=== PATIENT | male | born 1955 | race Caucasian/White ===

== ENCOUNTER → 2016-12-16 | Outpatient (CLI) | payer OTHER ==
[~2016-12-16] VITALS: Ht 162.6 cm; Wt 59.0 kg
[~2016-12-16] MED LIST: BECL10PO INH; LISI-556 PO; RT-ALBUINH IH
== END ==
LOC: PREOP 05:43
PROVIDERS: ATTEND Internal Medicine Critical Care Medicine
DX: Z01.818 Encounter for other preprocedural examination (principal); R91.8 Other nonspecific abnormal finding of lung field

== ENCOUNTER 2016-12-18 06:51 | Day surgery (SDC) | payer OTHER ==
[~2016-12-18] VITALS: Ht 162.6 cm; Wt 59.0 kg
[2016-12-18] MEDS ORDERED: SEVOFLURANE (ULTANE) 15 ML INHAL SOLN ONE (06:57)
[2016-12-18] MEDS ORDERED: proPOfol 200 MG/20 ML (DIPRIVAN) VIAL IV ONE (06:57)
[2016-12-18] MEDS ORDERED: LIDOCAINE JELLY 2% (XYLOCAINE) 5 ML TUBE ONE (06:57)
[2016-12-18] MEDS ORDERED: fentaNYL INJECTION 100 MCG/2 ML AMP ONE (06:57)
[2016-12-18] MEDS ORDERED: MIDAZOLAM 2 MG/2 ML (VERSED) VIAL ONE (06:57)
[2016-12-18] MEDS ORDERED: ROCURONIUM 50 MG/5 ML (ZEMURON) VIAL IV ONE (06:58)
[2016-12-18] MEDS ORDERED: LIDOCAINE PF 2% 10 ML (XYLOCAINE) AMP ONE (06:58)
[2016-12-18] MEDS ORDERED: ONDANSETRON 4 MG/2 ML (SDV) Z0FRAN ONE (06:58)
[2016-12-18 07:10] VITALS: BP 162/94
[2016-12-18] MEDS ORDERED: fentaNYL INJECTION 100 MCG/2 ML AMP IVP PRN (07:15)
[2016-12-18] MEDS ORDERED: NS IV 1000 ML 1,000 ML IV PRN (07:15)
[2016-12-18] MEDS ORDERED: FLUMAZENIL (ROMAZICON) 0.1 MG/ML 5 ML VIAL INJ PRN (07:15)
[2016-12-18] MEDS ORDERED: NALOXONE 0.4 MG/ML 1 ML (NARCAN) VIAL IVP PRN (07:15)
[2016-12-18] MEDS ORDERED: MIDAZOLAM 2 MG/2 ML (VERSED) VIAL IVP PRN (07:15)
[2016-12-18] MEDS: FAMOTIDINE 20MG/2ML IV (PEPCID) IVP ONE ×2 (07:30→07:45)
[2016-12-18] MEDS ORDERED: FAMOTIDINE 20MG/2ML IV (PEPCID) ONE (07:38)
--- NOTE | 2016-12-18 07:46 | Progress Note-Pre Operative ---
Pre-Operative Progress Note H&P Reviewed The H&P was reviewed, patient examined and no changes noted. Date H&P Reviewed: Dec 18, 2016 Time H&P Reviewed: 07:46 Pre-Operative Diagnosis: lung mass ESCOBAR BELL DO Dec 18, 2016 07:46
[2016-12-18] MEDS: NS IV 500 ML 500 ML IV PRN ×2 (08:55→10:37)
[2016-12-18] MEDS ORDERED: NS IV 500 ML 500 ML ONE (08:55)
--- NOTE | 2016-12-18 09:48 | Diagnostic Imaging Report ---
INDICATION: Post bronc. Right lung mass. FINDINGS: Very large right upper lobe medial lung mass measures cephalocaudal dimensions of about 11 cm. There is some postobstructive atelectasis. There is no pneumothorax. The left lung is clear. IMPRESSION: Known large right lung mass with mild postobstructive disease. No pneumothorax apparent post bronchoscopy. Dictated by: Dictated on workstation # [id number]
[2016-12-18] MEDS ORDERED: RT-ALBUTEROL SULF 2.5 MG/3 ML PRE-MIX VIAL INH SCH (09:54)
[2016-12-18] MEDS ORDERED: RT-ALBUTEROL/IPRATROPIUM 3 ML (DUONEB) VIAL INH ONE (09:54)
[2016-12-18] MEDS ORDERED: methylPREDNISolone 125 MG (Solu-MEDROL) VIAL ONE (09:59)
[2016-12-18] MEDS ORDERED: RT-ALBUTEROL SULF 2.5 MG/3 ML PRE-MIX VIAL ONE (09:59)
[2016-12-18] MEDS ORDERED: RT-ALBUTEROL/IPRATROPIUM 3 ML (DUONEB) VIAL ONE (10:07)
[2016-12-18] MEDS ORDERED: methylPREDNISolone 125 MG (Solu-MEDROL) VIAL IVP ONE (10:15)
[2016-12-18 10:50] VITALS: BP 161/85
[2016-12-18 11:20] VITALS: BP 165/93
[2016-12-18 11:30] VITALS: BP 165/93
--- NOTE | 2016-12-18 18:41 | Diagnostic Imaging Report ---
INDICATION: Bronchoscopy. EXAMINATION: Fluoroscopy. Fluoroscopic assistance was provided for Dr. Jose Londono during his bronchoscopy procedure. 53.3 seconds of fluoroscopy time was utilized. FINDINGS: Single spot film of the right thorax was received. There is a bronchoscopy device overlying the right hilum. IMPRESSION: Fluoroscopic assistance was provided for Dr. Londono during his bronchoscopy procedure. Dictated by: Dictated on workstation # [id number]
--- NOTE | 2017-01-15 13:26 | Pulmonary Procedures ---
Pulmonary Procedures Date of Procedure Date of Service: Dec 18, 2016 Bronch Bronchoscopy with EBUS with bx of RUL station 7 lymph nodes Preop DX: mediastinal lymphadenopathy PostOP DX: same Complications: None Pt was sedated per anesthesia. Bronchoscopy was advanced through the ED tube and an anatomical undertaken down to the segmental bronchi bilaterally. No endobronchial lesions noted. EBUS was then advanced through ET tube and the mediastinum was US. Station [7] lymph nodes were sampled via needle bx under US guidance. Pt tolerated procedure well. No complications noted. ESCOBAR BELL DO Jan 15, 2017 13:26
== END 2016-12-18 11:30 | disposition home or self-care (01) ==
LOC: ENDO 06:51
PROVIDERS: ATTEND Internal Medicine Critical Care Medicine
DX: C34.11 Malignant neoplasm of upper lobe, right bronchus or lung (principal); C77.1 Secondary and unspecified malignant neoplasm of intrathoracic lymph nodes
CPT/HCPCS: 71010; 81235; 87070; 87101; 87116; 87205; 88112; 88305; 88312; 88341; 88342; 88344; 88368; 88369; 88381; 94640

== ENCOUNTER → 2016-12-31 | Outpatient (CLI) | payer OTHER ==
--- OUTSIDE RECORDS SUMMARY | 2016-12-31 09:52 | XMS REPORT | Continuity of Care Document ---
Author Author [facility] Organization [facility] Address Unknown Phone Unavailable Care Team Providers Care Section Cutter Name Role Phone NO, LOCAL PHYSICIAN PCP Unavailable Insurance Providers Payer Name Policy Number Subscriber Name Relationship [facility] [id number] Trisha Membreno. 19 Self / Same As Patient Advance Directives Directive Response Recorded Date/Time Advance Directives No 12/18/16 7:15am Health Care Power of Library Cataloging Technician No 12/18/16 7:15am Resuscitation Status Full Code 12/18/16 7:15am Problems No problem information available. Medications Current Home Medications Medication Dose Units Route Directions Days/Qty Instructions Start Date Lisinopril 5 Mg 5 Mg Oral Daily 12/16/16 Beclomethasone Dipropionate 10 Gm 1 Puff Inhalation Twice A Day 03/29 Albuterol Sulfate 1 Puff 2 Puff Inhalation Every 4HRS 1 PUFF=90 MCG Social History Social History Problem Response Recorded Date/Time Alcohol Use Denies Use 12/18/2016 7:15am Recreational Drug Use No 12/18/2016 7:15am Recent Foreign Travel No 12/18/2016 7:00am Recent Infectious Disease Exposure No 12/18/2016 7:00am Sexually Transmitted Disease No 12/18/2016 7:15am HIV/AIDS No 12/18/2016 7:15am Smoking Status Former Smoker 12/18/2016 7:15am Recent Hopitalizations No 12/18/2016 7:15am Sexually Transmitted Disease No 12/18/2016 7:15am Query Response Start Date Stop Date Smoking Status Former Smoker Hospital Discharge Instructions No hospital discharge instructions. Plan of Care Discharge Date 12/18/16 11:30am Instructions/Education Provided BRONCHOSPASM-ADULT Bronchoscopy, Diagnostic Prescriptions See Medication Section Functional Status No functional status results. Allergies, Adverse Reactions, Alerts Allergen Type Severity Reaction Status Last Updated Penicillins ([id number]) Allergy Intermediate ITCHING/SWELLING Active 03/29 Aspirin Allergy Intermediate ITCHING/SWELLING Active 12/16/16 Immunizations No immunization records. Vital Signs Acute Vital Signs Vital Response Date/Time Temperature (Fahrenheit) 98.3 degrees F (97.6 - 99.5) 12/18/2016 11:30am Temperature (Calculated Celsius) 36.84744 degrees C (36.4 - 37.5) 12/18/2016 11:30am Temperature Source Tympanic 12/18/2016 11:30am Pulse Rate (adult) 116 bpm (60 - 90) 12/18/2016 11:30am Respiratory Rate 20 bpm (12 - 24) 12/18/2016 11:30am O2 Sat by Pulse Oximetry 93 % (88 - 100) 12/18/2016 11:30am Blood Pressure 165/93 mm Hg 12/18/2016 11:30am Blood Pressure Mean 116 mm Hg 12/18/2016 7:10am Pain Numeric Pain Scale 0-No Pain 12/18/2016 11:30am Pain Intensity 0 12/18/2016 11:20am Height (Feet) 5 feet 12/18/2016 7:00am Height (Inches) 4.00 inches 12/18/2016 7:00am Height (Calculated Centimeters) 162.069379 cm 12/18/2016 7:00am Weight (Pounds) 130 pounds 12/18/2016 7:00am Weight (Ounces) 0.0 oz 12/18/2016 7:00am Weight (Calculated Grams) 35417.01 gm 12/18/2016 7:00am Weight (Calculated Kilograms) 58.273442 kilograms 12/18/2016 7:00am Calculated BMI 22.3 12/18/2016 7:00am Results Laboratory Results Test Name Result Units Flags Reference Collection Date/Time Result Date/ Time Comments White Blood Count 23.4 10^3/uL H 4.3-11.0 12/11/2016 8:54am 12/11/2016 9: 03am Red Blood Count 3.88 10^6/uL L 4.35-5.85 12/11/2016 8:54am 12/11/2016 9: 03am Hemoglobin 11.8 G/DL L 13.3-17.7 12/11/2016 8:54am 12/11/2016 9:03am Hematocrit 34 % L 40-54 12/11/2016 8:54am 12/11/2016 9:03am Mean Corpuscular Volume 87 FL 80-99 12/11/2016 8:54am 12/11/2016 9: 03am Mean Corpuscular Hemoglobin 30 PG 25-34 12/11/2016 8:54am 12/11/2016 9: 03am Mean Corpuscular Hemoglobin Concent 35 G/DL 32-36 12/11/2016 8:54am 10/2016 9:03am Red Cell Distribution Width 14.7 % H 10.0-14.5 12/11/2016 8:54am 2016 9:03am Platelet Count 866 10^3/uL H 130-400 12/11/2016 8:54am 12/11/2016 9:03am Mean Platelet Volume 8.0 FL 7.4-10.4 12/11/2016 8:54am 12/11/2016 9: 03am Neutrophils (%) (Auto) 88 % H 42-75 12/11/2016 8:54am 12/11/2016 9:03am Lymphocytes (%) (Auto) 6 % L 12-44 12/11/2016 8:54am 12/11/2016 9:03am Monocytes (%) (Auto) 5 % 0-12 12/11/2016 8:54am 12/11/2016 9:03am Eosinophils (%) (Auto) 0 % 0-10 12/11/2016 8:54am 12/11/2016 9:03am Basophils (%) (Auto) 0 % 0-10 12/11/2016 8:54am 12/11/2016 9:03am Neutrophils # (Auto) 20.6 X 10^3 H 1.8-7.8 12/11/2016 8:54am 12/11/2016 9 :03am Lymphocytes # (Auto) 1.5 X 10^3 1.0-4.0 12/11/2016 8:54am 12/11/2016 9: 03am Monocytes # (Auto) 1.2 X 10^3 H 0.0-1.0 12/11/2016 8:54am 12/11/2016 9: 03am Eosinophils # (Auto) 0.1 10^3/uL 0.0-0.3 12/11/2016 8:54am 12/11/2016 9 :03am Basophils # (Auto) 0.1 10^3/uL 0.0-0.1 12/11/2016 8:54am 12/11/2016 9: 03am Sodium Level 133 MMOL/L L 135-145 12/11/2016 8:54am 12/11/2016 9:31am Potassium Level 4.1 MMOL/L 3.6-5.0 12/11/2016 8:54am 12/11/2016 9:31am Chloride Level 101 MMOL/L 98-107 12/11/2016 8:54am 12/11/2016 9:31am Carbon Dioxide Level 20 MMOL/L L 21-32 12/11/2016 8:54am 12/11/2016 9: 31am Anion Gap 12 MMOL/L 5-14 12/11/2016 8:54am 12/11/2016 9:31am Blood Urea Nitrogen 9 MG/DL 7-18 12/11/2016 8:54am 12/11/2016 9:31am Creatinine 0.79 MG/DL 0.60-1.30 12/11/2016 8:54am 12/11/2016 9:31am BUN/Creatinine Ratio 11 12/11/2016 8:54am 12/11/2016 9:31am Estimat Glomerular Filtration Rate > 60 12/11/2016 8:54am 2016 9:31am GFR INTERPRETIVE DATA UNITS FOR ESTIMATED GFR (eGFR): mL/min/1.73 M2 REFERENCE RANGE FOR ESTIMATED GFR (eGFR) eGFR NORMAL eGFR >60 MODERATELY DECREASED eGFR 30-59 SEVERLY DECREASED eGFR 15-29 KIDNEY FAILURE <15 (OR DIALYSIS) Glucose Level 133 MG/DL H 70-105 12/11/2016 8:54am 12/11/2016 9:31am Calcium Level 9.1 MG/DL 8.5-10.1 12/11/2016 8:54am 12/11/2016 9:31am Total Bilirubin 0.3 MG/DL 0.1-1.0 12/11/2016 8:54am 12/11/2016 9:31am Alkaline Phosphatase 106 U/L 40-136 12/11/2016 8:54am 12/11/2016 9: 31am Aspartate Amino Transf (AST/SGOT) 17 U/L 5-34 12/11/2016 8:54am 2016 9:31am Alanine Aminotransferase (ALT/SGPT) 15 U/L 0-55 12/11/2016 8:54am 12/11 9:31am Lactate Dehydrogenase 207 U/L 125-220 12/11/2016 8:54am 12/11/2016 9: 31am Total Protein 6.7 G/DL 6.4-8.2 12/11/2016 8:54am 12/11/2016 9:31am Albumin 3.6 G/DL 3.2-4.5 12/11/2016 8:54am 12/11/2016 9:31am Procedures Procedure Status Date Provider(s) Anesthesia for 30 minutes Active 12/18/16 ESCOBAR BELL DO Encounters Encounter Location Arrival/Admit Date Discharge/Depart Date Attending Provider Departed [facility] 12/18/16 6:51am 11:30am ESCOBAR BELL DO Registered Clinic [facility] 12/16/16 5:43am ESCOBAR BELL DO Registered Recurring [facility] 12/11/16 8:24am KATHLEEN BAEZ
--- NOTE | 2016-12-31 19:55 | Diagnostic Imaging Report ---
EXAMINATION: PET-CT TECHNIQUE: Serum glucose level at the time of the study is: 131 mg/dL. 11.3 mCi of FDG was administered intravenously followed by obtaining PET images with corresponding noncontrast CT scan images. The CT scan was performed for anatomic correlation and attenuation correction and was not performed according to the diagnostic protocol of the areas covered. The scan was performed from the head to mid thighs. INDICATION: Lung cancer initial staging. FINDINGS: There is a 10.7 x 9.7 cm right upper lobe mass extending to the stanley and the right hilum and is inseparable from the right paratracheal lymph node station with distortion of the right hilar structures. The mass obliterates some of the right upper lobe bronchial branches and does extend to the right lower lobe in central location through invasion of the major fissure. Craniocaudal measurement of the mass is 10 cm based on previous outside CT scan loaded on our system. There is central necrosis and lack of metabolic activity noted. Peripheral moderate hypermetabolism is seen in its central medial aspect along the mediastinum with maximum SUV of 10. There is no contralateral hilar or mediastinal left-sided FDG avid lymph node. There is no hypermetabolic metastasis in the neck or head identified. In the abdomen and pelvis there is hypermetabolism. FDG uptake is seen along the urinary tract with no hypermetabolic mass or lymphadenopathy seen. IMPRESSION: Large central right lung mass abutting the right hilum, right paratracheal and infracarinal dhaval stations with associated peripheral avid FDG uptake and central necrosis compatible with lung cancer. No distant metastasis. Dictated by: Dictated on workstation # [id number]
== END ==
LOC: RAD 09:48
PROVIDERS: ATTEND Internal Medicine Hematology & Oncology
DX: Z01.89 Encounter for other specified special examinations (principal); C34.90 Malignant neoplasm of unspecified part of unspecified bronchus or lung

== ENCOUNTER → 2017-03-11 | Outpatient (RCR) | payer OTHER ==
[2016-12-11 08:58] LABS: BASOPHILS # (AUTO) 0.1 10^3/uL (0.0-0.1); BASOPHILS % (AUTO) 0 % (0-10); EOSINOPHILS # (AUTO) 0.1 10^3/uL (0.0-0.3); EOSINOPHILS % (AUTO) 0 % (0-10); LYMPHOCYTES # (AUTO) 1.5 X 10^3 (1.0-4.0); LYMPHOCYTES % (AUTO) 6 % (12-44); MEAN CORPUSCULAR HEMOGLOBIN 30 PG (25-34); MEAN CORPUSCULAR HGB CONC 35 G/DL (32-36); MEAN CORPUSCULAR VOLUME 87 FL (80-99); MONOCYTES # (AUTO) 1.2 X 10^3 (0.0-1.0); MONOCYTES % (AUTO) 5 % (0-12); NEUTROPHILS # (AUTO) 20.6 X 10^3 (1.8-7.8); NEUTROPHILS % (AUTO) 88 % (42-75); PLATELET COUNT 866 10^3/uL (130-400); RED BLOOD COUNT 3.88 10^6/uL (4.35-5.85); RED CELL DISTRIBUTION WIDTH 14.7 % (10.0-14.5); WHITE BLOOD COUNT 23.4 10^3/uL (4.3-11.0)
[2016-12-11 09:31] LABS: ALANINE AMINOTRANSFERASE 15 U/L (0-55); ALBUMIN 3.6 G/DL (3.2-4.5); ANION GAP 12 MMOL/L (5-14); ASPARTATE AMINO TRANSFERASE 17 U/L (5-34); BILIRUBIN,TOTAL 0.3 MG/DL (0.1-1.0); BLOOD UREA NITROGEN 9 MG/DL (7-18); BUN/CREATININE RATIO 11; CALCIUM 9.1 MG/DL (8.5-10.1); CARBON DIOXIDE 20 MMOL/L (21-32); CHLORIDE 101 MMOL/L (98-107); CREATININE SERUM 0.79 MG/DL (0.60-1.30); GFR ESTIMATED > 60; GLUCOSE 133 MG/DL (70-105); LACTATE DEHYDROGENASE 207 U/L (125-220); POTASSIUM 4.1 MMOL/L (3.6-5.0); SODIUM 133 MMOL/L (135-145); TOTAL PROTEIN 6.7 G/DL (6.4-8.2)
[2017-01-06 09:57] LABS: BASOPHILS % (AUTO) 0 % (0-10); EOSINOPHILS # (AUTO) 0.1 10^3/uL (0.0-0.3); EOSINOPHILS % (AUTO) 0 % (0-10); LYMPHOCYTES # (AUTO) 1.1 X 10^3 (1.0-4.0); LYMPHOCYTES % (AUTO) 4 % (12-44); MEAN CORPUSCULAR HEMOGLOBIN 30 PG (25-34); MEAN CORPUSCULAR HGB CONC 35 G/DL (32-36); MEAN CORPUSCULAR VOLUME 88 FL (80-99); MEAN PLATELET VOLUME 7.9 FL (7.4-10.4); MONOCYTES # (AUTO) 2.2 X 10^3 (0.0-1.0); MONOCYTES % (AUTO) 8 % (0-12); NEUTROPHILS % (AUTO) 88 % (42-75); PLATELET COUNT 644 10^3/uL (130-400); RED BLOOD COUNT 3.33 10^6/uL (4.35-5.85); WHITE BLOOD COUNT 28.4 10^3/uL (4.3-11.0)
[2017-01-06 10:46] LABS: ANION GAP 8 MMOL/L (5-14); BLOOD UREA NITROGEN 14 MG/DL (7-18); BUN/CREATININE RATIO 16; CALCIUM 8.8 MG/DL (8.5-10.1); CARBON DIOXIDE 23 MMOL/L (21-32); CHLORIDE 91 MMOL/L (98-107); CREATININE SERUM 0.87 MG/DL (0.60-1.30); GFR ESTIMATED > 60; GLUCOSE 166 MG/DL (70-105)
[2017-01-06 10:49] LABS: SODIUM 122 MMOL/L (135-145)
[2017-01-13 13:44] LABS: BASOPHILS % (AUTO) 0 % (0-10); EOSINOPHILS % (AUTO) 0 % (0-10); LYMPHOCYTES # (AUTO) 0.6 X 10^3 (1.0-4.0); LYMPHOCYTES % (AUTO) 3 % (12-44); MEAN CORPUSCULAR HEMOGLOBIN 31 PG (25-34); MEAN CORPUSCULAR HGB CONC 35 G/DL (32-36); MEAN CORPUSCULAR VOLUME 90 FL (80-99); MONOCYTES # (AUTO) 0.3 X 10^3 (0.0-1.0); MONOCYTES % (AUTO) 2 % (0-12); NEUTROPHILS # (AUTO) 19.8 X 10^3 (1.8-7.8); NEUTROPHILS % (AUTO) 96 % (42-75); PLATELET COUNT 840 10^3/uL (130-400); RED BLOOD COUNT 3.24 10^6/uL (4.35-5.85); RED CELL DISTRIBUTION WIDTH 17.1 % (10.0-14.5); WHITE BLOOD COUNT 20.8 10^3/uL (4.3-11.0)
[2017-01-13 14:14] LABS: ALANINE AMINOTRANSFERASE 33 U/L (0-55); ALBUMIN 3.2 G/DL (3.2-4.5); ANION GAP 10 MMOL/L (5-14); ASPARTATE AMINO TRANSFERASE 21 U/L (5-34); BILIRUBIN,TOTAL 0.4 MG/DL (0.1-1.0); BLOOD UREA NITROGEN 11 MG/DL (7-18); BUN/CREATININE RATIO 14; CALCIUM 8.9 MG/DL (8.5-10.1); CARBON DIOXIDE 23 MMOL/L (21-32); CHLORIDE 94 MMOL/L (98-107); CREATININE SERUM 0.79 MG/DL (0.60-1.30); GFR ESTIMATED > 60; GLUCOSE 181 MG/DL (70-105); POTASSIUM 4.7 MMOL/L (3.6-5.0); SODIUM 127 MMOL/L (135-145); TOTAL PROTEIN 6.3 G/DL (6.4-8.2)
[2017-01-20 13:05] LABS: BASOPHILS % (AUTO) 0 % (0-10); EOSINOPHILS % (AUTO) 0 % (0-10); LYMPHOCYTES # (AUTO) 0.3 X 10^3 (1.0-4.0); LYMPHOCYTES % (AUTO) 2 % (12-44); MEAN CORPUSCULAR HEMOGLOBIN 31 PG (25-34); MEAN CORPUSCULAR HGB CONC 33 G/DL (32-36); MEAN CORPUSCULAR VOLUME 91 FL (80-99); MEAN PLATELET VOLUME 8.6 FL (7.4-10.4); MONOCYTES # (AUTO) 0.2 X 10^3 (0.0-1.0); MONOCYTES % (AUTO) 1 % (0-12); NEUTROPHILS % (AUTO) 97 % (42-75); PLATELET COUNT 633 10^3/uL (130-400); RED BLOOD COUNT 3.31 10^6/uL (4.35-5.85); RED CELL DISTRIBUTION WIDTH 17.3 % (10.0-14.5); WHITE BLOOD COUNT 13.5 10^3/uL (4.3-11.0)
[2017-01-20 13:27] LABS: ANION GAP 12 MMOL/L (5-14); BLOOD UREA NITROGEN 11 MG/DL (7-18); BUN/CREATININE RATIO 13; CARBON DIOXIDE 22 MMOL/L (21-32); CHLORIDE 95 MMOL/L (98-107); CREATININE SERUM 0.83 MG/DL (0.60-1.30); GFR ESTIMATED > 60; GLUCOSE 188 MG/DL (70-105); POTASSIUM 4.7 MMOL/L (3.6-5.0); SODIUM 129 MMOL/L (135-145)
[2017-01-27 13:15] LABS: BASOPHILS % (AUTO) 0 % (0-10); EOSINOPHILS % (AUTO) 0 % (0-10); LYMPHOCYTES # (AUTO) 0.2 X 10^3 (1.0-4.0); LYMPHOCYTES % (AUTO) 2 % (12-44); MEAN CORPUSCULAR HEMOGLOBIN 31 PG (25-34); MEAN CORPUSCULAR HGB CONC 34 G/DL (32-36); MEAN CORPUSCULAR VOLUME 91 FL (80-99); MEAN PLATELET VOLUME 8.4 FL (7.4-10.4); MONOCYTES # (AUTO) 0.2 X 10^3 (0.0-1.0); MONOCYTES % (AUTO) 2 % (0-12); NEUTROPHILS # (AUTO) 8.9 X 10^3 (1.8-7.8); NEUTROPHILS % (AUTO) 96 % (42-75); PLATELET COUNT 587 10^3/uL (130-400); RED BLOOD COUNT 3.35 10^6/uL (4.35-5.85); RED CELL DISTRIBUTION WIDTH 17.2 % (10.0-14.5); WHITE BLOOD COUNT 9.2 10^3/uL (4.3-11.0)
[2017-01-27 13:47] LABS: ANION GAP 11 MMOL/L (5-14); BLOOD UREA NITROGEN 13 MG/DL (7-18); BUN/CREATININE RATIO 15; CALCIUM 9.2 MG/DL (8.5-10.1); CARBON DIOXIDE 23 MMOL/L (21-32); CHLORIDE 95 MMOL/L (98-107); CREATININE SERUM 0.84 MG/DL (0.60-1.30); GFR ESTIMATED > 60; GLUCOSE 217 MG/DL (70-105); POTASSIUM 4.5 MMOL/L (3.6-5.0); SODIUM 129 MMOL/L (135-145)
[2017-02-03 13:31] LABS: BASOPHILS % (AUTO) 0 % (0-10); EOSINOPHILS # (AUTO) 0.1 10^3/uL (0.0-0.3); EOSINOPHILS % (AUTO) 1 % (0-10); LYMPHOCYTES # (AUTO) 0.6 X 10^3 (1.0-4.0); LYMPHOCYTES % (AUTO) 6 % (12-44); MEAN CORPUSCULAR HEMOGLOBIN 31 PG (25-34); MEAN CORPUSCULAR HGB CONC 34 G/DL (32-36); MEAN CORPUSCULAR VOLUME 92 FL (80-99); MEAN PLATELET VOLUME 8.3 FL (7.4-10.4); MONOCYTES # (AUTO) 1.2 X 10^3 (0.0-1.0); MONOCYTES % (AUTO) 11 % (0-12); NEUTROPHILS # (AUTO) 8.8 X 10^3 (1.8-7.8); NEUTROPHILS % (AUTO) 82 % (42-75); PLATELET COUNT 483 10^3/uL (130-400); RED BLOOD COUNT 3.28 10^6/uL (4.35-5.85); RED CELL DISTRIBUTION WIDTH 17.2 % (10.0-14.5); WHITE BLOOD COUNT 10.7 10^3/uL (4.3-11.0)
[2017-02-03 14:13] LABS: ALANINE AMINOTRANSFERASE 9 U/L (0-55); ALBUMIN 3.3 G/DL (3.2-4.5); ANION GAP 12 MMOL/L (5-14); ASPARTATE AMINO TRANSFERASE 10 U/L (5-34); BILIRUBIN,TOTAL 0.3 MG/DL (0.1-1.0); BLOOD UREA NITROGEN 6 MG/DL (7-18); BUN/CREATININE RATIO 9; CALCIUM 8.7 MG/DL (8.5-10.1); CARBON DIOXIDE 22 MMOL/L (21-32); CHLORIDE 96 MMOL/L (98-107); CREATININE SERUM 0.66 MG/DL (0.60-1.30); GFR ESTIMATED > 60; GLUCOSE 134 MG/DL (70-105); MAGNESIUM 1.4 MG/DL (1.8-2.4); POTASSIUM 3.6 MMOL/L (3.6-5.0); SODIUM 130 MMOL/L (135-145)
[2017-02-10 12:24] LABS: BASOPHILS # (AUTO) 0.1 10^3/uL (0.0-0.1); BASOPHILS % (AUTO) 1 % (0-10); EOSINOPHILS # (AUTO) 0.2 10^3/uL (0.0-0.3); EOSINOPHILS % (AUTO) 2 % (0-10); LYMPHOCYTES # (AUTO) 0.5 X 10^3 (1.0-4.0); LYMPHOCYTES % (AUTO) 6 % (12-44); MEAN CORPUSCULAR HEMOGLOBIN 32 PG (25-34); MEAN CORPUSCULAR HGB CONC 34 G/DL (32-36); MEAN CORPUSCULAR VOLUME 93 FL (80-99); MEAN PLATELET VOLUME 9.7 FL (7.4-10.4); MONOCYTES # (AUTO) 0.7 X 10^3 (0.0-1.0); MONOCYTES % (AUTO) 8 % (0-12); NEUTROPHILS # (AUTO) 7.5 X 10^3 (1.8-7.8); NEUTROPHILS % (AUTO) 84 % (42-75); RED BLOOD COUNT 3.29 10^6/uL (4.35-5.85)
[2017-02-10 12:30] LABS: ANION GAP 12 MMOL/L (5-14); BLOOD UREA NITROGEN 5 MG/DL (7-18); BUN/CREATININE RATIO 7; CALCIUM 8.8 MG/DL (8.5-10.1); CARBON DIOXIDE 22 MMOL/L (21-32); CHLORIDE 98 MMOL/L (98-107); CREATININE SERUM 0.68 MG/DL (0.60-1.30); GFR ESTIMATED > 60; GLUCOSE 120 MG/DL (70-105); MAGNESIUM 1.7 MG/DL (1.8-2.4); POTASSIUM 4.1 MMOL/L (3.6-5.0); SODIUM 132 MMOL/L (135-145)
[2017-02-10 12:42] LABS: PLATELET COUNT 331 10^3/uL (130-400)
[2017-02-17 11:13] LABS: BASOPHILS % (AUTO) 0 % (0-10); EOSINOPHILS # (AUTO) 0.1 10^3/uL (0.0-0.3); EOSINOPHILS % (AUTO) 1 % (0-10); LYMPHOCYTES # (AUTO) 0.3 X 10^3 (1.0-4.0); LYMPHOCYTES % (AUTO) 6 % (12-44); MEAN CORPUSCULAR HEMOGLOBIN 31 PG (25-34); MEAN CORPUSCULAR HGB CONC 33 G/DL (32-36); MEAN CORPUSCULAR VOLUME 94 FL (80-99); MEAN PLATELET VOLUME 8.8 FL (7.4-10.4); MONOCYTES # (AUTO) 0.5 X 10^3 (0.0-1.0); MONOCYTES % (AUTO) 9 % (0-12); NEUTROPHILS % (AUTO) 84 % (42-75); PLATELET COUNT 297 10^3/uL (130-400); RED BLOOD COUNT 3.21 10^6/uL (4.35-5.85); RED CELL DISTRIBUTION WIDTH 17.6 % (10.0-14.5); WHITE BLOOD COUNT 5.9 10^3/uL (4.3-11.0)
[2017-02-17 11:34] LABS: ALANINE AMINOTRANSFERASE 7 U/L (0-55); ALBUMIN 3.5 G/DL (3.2-4.5); ANION GAP 10 MMOL/L (5-14); ASPARTATE AMINO TRANSFERASE 11 U/L (5-34); BILIRUBIN,TOTAL 0.4 MG/DL (0.1-1.0); BLOOD UREA NITROGEN 7 MG/DL (7-18); BUN/CREATININE RATIO 10; CALCIUM 8.9 MG/DL (8.5-10.1); CARBON DIOXIDE 25 MMOL/L (21-32); CHLORIDE 99 MMOL/L (98-107); CREATININE SERUM 0.67 MG/DL (0.60-1.30); GFR ESTIMATED > 60; GLUCOSE 126 MG/DL (70-105); MAGNESIUM 1.9 MG/DL (1.8-2.4); POTASSIUM 4.3 MMOL/L (3.6-5.0); SODIUM 134 MMOL/L (135-145); TOTAL PROTEIN 5.9 G/DL (6.4-8.2)
[2017-02-24 12:50] LABS: BASOPHILS % (AUTO) 1 % (0-10); EOSINOPHILS % (AUTO) 1 % (0-10); LYMPHOCYTES # (AUTO) 0.3 X 10^3 (1.0-4.0); LYMPHOCYTES % (AUTO) 6 % (12-44); MEAN CORPUSCULAR HEMOGLOBIN 32 PG (25-34); MEAN CORPUSCULAR HGB CONC 33 G/DL (32-36); MEAN CORPUSCULAR VOLUME 97 FL (80-99); MEAN PLATELET VOLUME 8.8 FL (7.4-10.4); MONOCYTES # (AUTO) 0.6 X 10^3 (0.0-1.0); MONOCYTES % (AUTO) 14 % (0-12); NEUTROPHILS # (AUTO) 3.2 X 10^3 (1.8-7.8); NEUTROPHILS % (AUTO) 79 % (42-75); PLATELET COUNT 385 10^3/uL (130-400); RED CELL DISTRIBUTION WIDTH 17.9 % (10.0-14.5); WHITE BLOOD COUNT 4.1 10^3/uL (4.3-11.0)
[2017-02-24 13:12] LABS: ALANINE AMINOTRANSFERASE 6 U/L (0-55); ALBUMIN 3.4 G/DL (3.2-4.5); ANION GAP 7 MMOL/L (5-14); ASPARTATE AMINO TRANSFERASE 8 U/L (5-34); BILIRUBIN,TOTAL 0.3 MG/DL (0.1-1.0); BLOOD UREA NITROGEN 9 MG/DL (7-18); BUN/CREATININE RATIO 12; CALCIUM 8.6 MG/DL (8.5-10.1); CARBON DIOXIDE 25 MMOL/L (21-32); CHLORIDE 101 MMOL/L (98-107); CREATININE SERUM 0.73 MG/DL (0.60-1.30); GFR ESTIMATED > 60; GLUCOSE 152 MG/DL (70-105); MAGNESIUM 1.7 MG/DL (1.8-2.4); POTASSIUM 4.1 MMOL/L (3.6-5.0); SODIUM 133 MMOL/L (135-145); TOTAL PROTEIN 5.6 G/DL (6.4-8.2)
[2017-03-03 11:51] LABS: BASOPHILS % (AUTO) 1 % (0-10); EOSINOPHILS % (AUTO) 1 % (0-10); LYMPHOCYTES # (AUTO) 0.3 X 10^3 (1.0-4.0); LYMPHOCYTES % (AUTO) 8 % (12-44); MEAN CORPUSCULAR HEMOGLOBIN 33 PG (25-34); MEAN CORPUSCULAR HGB CONC 34 G/DL (32-36); MEAN CORPUSCULAR VOLUME 97 FL (80-99); MEAN PLATELET VOLUME 8.5 FL (7.4-10.4); MONOCYTES # (AUTO) 0.7 X 10^3 (0.0-1.0); MONOCYTES % (AUTO) 20 % (0-12); NEUTROPHILS # (AUTO) 2.3 X 10^3 (1.8-7.8); NEUTROPHILS % (AUTO) 70 % (42-75); PLATELET COUNT 453 10^3/uL (130-400); RED BLOOD COUNT 2.96 10^6/uL (4.35-5.85); RED CELL DISTRIBUTION WIDTH 17.8 % (10.0-14.5); WHITE BLOOD COUNT 3.2 10^3/uL (4.3-11.0)
[2017-03-03 12:14] LABS: ANION GAP 10 MMOL/L (5-14); BLOOD UREA NITROGEN 6 MG/DL (7-18); BUN/CREATININE RATIO 10; CALCIUM 8.8 MG/DL (8.5-10.1); CARBON DIOXIDE 24 MMOL/L (21-32); CHLORIDE 98 MMOL/L (98-107); CREATININE SERUM 0.63 MG/DL (0.60-1.30); GFR ESTIMATED > 60; GLUCOSE 113 MG/DL (70-105); POTASSIUM 3.7 MMOL/L (3.6-5.0); SODIUM 132 MMOL/L (135-145)
[~2017-03-11] VITALS: Ht 161.3 cm; Wt 55.3 kg
[~2017-03-11] MED LIST changes: +CARBOPLATIN 160 MG in D5W 50 ML IV(CANCER CTR) 50 ML IV SCH; +FAMOTIDINE 20MG/2ML IV (CANCER CTR) IV SCH; +MAGNESIUM SULFATE 2 GM in NS (IVPB) CANCER CENTER 100 ML IV ONE; +NORMAL SALINE IV SCH; +NS IV 500 ML (CANCER CENTER) 500 ML ONE; +NS IV 500 ML (CANCER CENTER) IV SCH; +PACLITAXEL IV SCH; +PALONOSETRON 0.25 MG, DEXAMETHASONE 10 MG/NS 50 ML IVPB IV PRN; +diphenhydrAMINE 25 MG TAB (BENADRYL) CANCER CENTER PO SCH; +diphenhydrAMINE 50 MG/ML INJ (CANCER CENTER) IV ONE; +diphenhydrAMINE 50 MG/ML INJ (CANCER CENTER) ONE
[2017-03-11 11:03] LABS: BASOPHILS % (AUTO) 0 % (0-10); EOSINOPHILS % (AUTO) 1 % (0-10); LYMPHOCYTES # (AUTO) 0.3 X 10^3 (1.0-4.0); LYMPHOCYTES % (AUTO) 7 % (12-44); MEAN CORPUSCULAR HEMOGLOBIN 33 PG (25-34); MEAN CORPUSCULAR HGB CONC 34 G/DL (32-36); MEAN CORPUSCULAR VOLUME 98 FL (80-99); MEAN PLATELET VOLUME 8.2 FL (7.4-10.4); MONOCYTES # (AUTO) 1.1 X 10^3 (0.0-1.0); MONOCYTES % (AUTO) 25 % (0-12); NEUTROPHILS # (AUTO) 2.9 X 10^3 (1.8-7.8); NEUTROPHILS % (AUTO) 66 % (42-75); PLATELET COUNT 393 10^3/uL (130-400); RED BLOOD COUNT 3.05 10^6/uL (4.35-5.85); RED CELL DISTRIBUTION WIDTH 18.2 % (10.0-14.5); WHITE BLOOD COUNT 4.5 10^3/uL (4.3-11.0)
[2017-03-11 12:11] LABS: ANION GAP 8 MMOL/L (5-14); BLOOD UREA NITROGEN 6 MG/DL (7-18); BUN/CREATININE RATIO 9; CALCIUM 9.3 MG/DL (8.5-10.1); CARBON DIOXIDE 26 MMOL/L (21-32); CHLORIDE 99 MMOL/L (98-107); CREATININE SERUM 0.68 MG/DL (0.60-1.30); GFR ESTIMATED > 60; GLUCOSE 110 MG/DL (70-105); POTASSIUM 4.6 MMOL/L (3.6-5.0); SODIUM 133 MMOL/L (135-145)
== END | disposition home or self-care (01) ==
LOC: ONC 12-09 15:51
PROVIDERS: ATTEND Internal Medicine Hematology & Oncology
DX: Z51.0 Encounter for antineoplastic radiation therapy (principal); Z51.11 Encounter for antineoplastic chemotherapy; C34.11 Malignant neoplasm of upper lobe, right bronchus or lung; J44.9 Chronic obstructive pulmonary disease, unspecified; I10 Essential (primary) hypertension; K21.9 Gastro-esophageal reflux disease without esophagitis; D64.9 Anemia, unspecified; E83.42 Hypomagnesemia; E87.1 Hypo-osmolality and hyponatremia; Z79.899 Other long term (current) drug therapy
CPT/HCPCS: 36415; 77290; 77295; 77300; 77307; 77332; 77334; 77336; 77417; 77470; 80048; 80053; 83615; 83735; 85025; 85027; 96368; 96375; 96413; 96417; 99213; 99214

== ENCOUNTER 2017-04-14 07:56 | Outpatient (RCR) | payer OTHER ==
[~2017-04-14 07:56] MED LIST changes: -CARBOPLATIN 160 MG in D5W 50 ML IV(CANCER CTR) 50 ML IV SCH; -FAMOTIDINE 20MG/2ML IV (CANCER CTR) IV SCH; -MAGNESIUM SULFATE 2 GM in NS (IVPB) CANCER CENTER 100 ML IV ONE; -NORMAL SALINE IV SCH; -NS IV 500 ML (CANCER CENTER) 500 ML ONE; -NS IV 500 ML (CANCER CENTER) IV SCH; -PACLITAXEL IV SCH; -PALONOSETRON 0.25 MG, DEXAMETHASONE 10 MG/NS 50 ML IVPB IV PRN; -diphenhydrAMINE 25 MG TAB (BENADRYL) CANCER CENTER PO SCH; -diphenhydrAMINE 50 MG/ML INJ (CANCER CENTER) IV ONE; -diphenhydrAMINE 50 MG/ML INJ (CANCER CENTER) ONE
[2017-04-27] MEDS ORDERED: OMEP20CA12 PO (21:40)
[2017-04-28] MEDS ORDERED: BECL8.7A6 INH (10:32)
[2017-05-02] MEDS ORDERED: DEXA4TAB PO (13:07)
[2017-05-02] MEDS ORDERED: LISI10TA2 PO (13:07)
[2017-05-13] MEDS ORDERED: CLOP75TA28 PO (14:57)
[2017-05-13] MEDS ORDERED: METO-270 PO (14:57)
[2017-05-13] MEDS ORDERED: DEXA4TAB PO (14:57)
== END 2017-07-12 | disposition home or self-care (01) ==
LOC: PULM 07:56
PROVIDERS: ATTEND Internal Medicine Critical Care Medicine
DX: C34.91 Malignant neoplasm of unspecified part of right bronchus or lung (principal); R06.02 Shortness of breath
CPT/HCPCS: 99211

== ENCOUNTER 2017-04-22 14:38 | Outpatient (RCR) | payer OTHER ==
[2017-03-18 10:38] LABS: BASOPHILS # (AUTO) 0.1 10^3/uL (0.0-0.1); BASOPHILS % (AUTO) 1 % (0-10); EOSINOPHILS # (AUTO) 0.3 10^3/uL (0.0-0.3); EOSINOPHILS % (AUTO) 4 % (0-10); LYMPHOCYTES # (AUTO) 0.7 X 10^3 (1.0-4.0); LYMPHOCYTES % (AUTO) 10 % (12-44); MEAN CORPUSCULAR HEMOGLOBIN 33 PG (25-34); MEAN CORPUSCULAR HGB CONC 33 G/DL (32-36); MEAN CORPUSCULAR VOLUME 97 FL (80-99); MEAN PLATELET VOLUME 8.1 FL (7.4-10.4); MONOCYTES % (AUTO) 14 % (0-12); NEUTROPHILS # (AUTO) 4.7 X 10^3 (1.8-7.8); NEUTROPHILS % (AUTO) 71 % (42-75); PLATELET COUNT 330 10^3/uL (130-400); RED BLOOD COUNT 3.13 10^6/uL (4.35-5.85); RED CELL DISTRIBUTION WIDTH 17.2 % (10.0-14.5); WHITE BLOOD COUNT 6.7 10^3/uL (4.3-11.0)
[2017-03-18 12:31] LABS: ANION GAP 8 MMOL/L (5-14); BLOOD UREA NITROGEN 6 MG/DL (7-18); BUN/CREATININE RATIO 8; CALCIUM 9.4 MG/DL (8.5-10.1); CARBON DIOXIDE 27 MMOL/L (21-32); CHLORIDE 95 MMOL/L (98-107); CREATININE SERUM 0.71 MG/DL (0.60-1.30); GFR ESTIMATED > 60; GLUCOSE 129 MG/DL (70-105); POTASSIUM 4.7 MMOL/L (3.6-5.0); SODIUM 130 MMOL/L (135-145)
[2017-04-02 09:41] LABS: BASOPHILS % (AUTO) 0 % (0-10); EOSINOPHILS # (AUTO) 0.1 10^3/uL (0.0-0.3); EOSINOPHILS % (AUTO) 1 % (0-10); LYMPHOCYTES # (AUTO) 0.3 X 10^3 (1.0-4.0); LYMPHOCYTES % (AUTO) 3 % (12-44); MEAN CORPUSCULAR HEMOGLOBIN 32 PG (25-34); MEAN CORPUSCULAR HGB CONC 33 G/DL (32-36); MEAN CORPUSCULAR VOLUME 99 FL (80-99); MEAN PLATELET VOLUME 8.8 FL (7.4-10.4); MONOCYTES # (AUTO) 0.7 X 10^3 (0.0-1.0); MONOCYTES % (AUTO) 6 % (0-12); NEUTROPHILS # (AUTO) 9.6 X 10^3 (1.8-7.8); NEUTROPHILS % (AUTO) 90 % (42-75); PLATELET COUNT 226 10^3/uL (130-400); RED BLOOD COUNT 3.45 10^6/uL (4.35-5.85); RED CELL DISTRIBUTION WIDTH 16.5 % (10.0-14.5); WHITE BLOOD COUNT 10.7 10^3/uL (4.3-11.0)
[2017-04-02 10:04] LABS: ALANINE AMINOTRANSFERASE 9 U/L (0-55); ALBUMIN 3.7 GM/DL (3.2-4.5); ANION GAP 9 MMOL/L (5-14); ASPARTATE AMINO TRANSFERASE 11 U/L (5-34); BILIRUBIN,TOTAL 0.5 MG/DL (0.1-1.0); BLOOD UREA NITROGEN 7 MG/DL (7-18); BUN/CREATININE RATIO 8 (0-20); CALCIUM 9.4 MG/DL (8.5-10.1); CARBON DIOXIDE 26 MMOL/L (21-32); CHLORIDE 102 MMOL/L (98-107); CREATININE SERUM 0.84 MG/DL (0.60-1.30); GFR ESTIMATED > 60; GLUCOSE 155 MG/DL (70-105); HEMOLYSIS 7 (-100-29); ICTERUS 0.5 (-100-1.9); LIPEMIA 1 (-100-49); POTASSIUM 4.1 MMOL/L (3.6-5.0); SODIUM 137 MMOL/L (135-145); TOTAL PROTEIN 6.4 GM/DL (6.4-8.2)
[2017-04-27] MEDS ORDERED: OMEP20CA12 PO (21:40)
[2017-04-28] MEDS ORDERED: BECL8.7A6 INH (10:32)
[2017-05-02] MEDS ORDERED: LISI10TA2 PO (13:07)
[2017-05-02] MEDS ORDERED: DEXA4TAB PO (13:07)
[2017-05-13] MEDS ORDERED: DEXA4TAB PO (14:57)
[2017-05-13] MEDS ORDERED: CLOP75TA28 PO (14:57)
[2017-05-13] MEDS ORDERED: METO-270 PO (14:57)
== END 2017-06-16 | disposition home or self-care (01) ==
LOC: ONC 14:38
PROVIDERS: ATTEND Internal Medicine Hematology & Oncology
DX: C34.11 Malignant neoplasm of upper lobe, right bronchus or lung (principal); C77.1 Secondary and unspecified malignant neoplasm of intrathoracic lymph nodes; J44.9 Chronic obstructive pulmonary disease, unspecified; I10 Essential (primary) hypertension; E87.1 Hypo-osmolality and hyponatremia; E83.42 Hypomagnesemia; K21.9 Gastro-esophageal reflux disease without esophagitis; R63.4 Abnormal weight loss; Z79.899 Other long term (current) drug therapy; Z92.21 Personal history of antineoplastic chemotherapy; Z92.3 Personal history of irradiation
CPT/HCPCS: 36415; 80048; 80053; 83735; 85025; 99213

== ENCOUNTER 2017-04-27 21:13 | Inpatient (IN) | payer OTHER ==
[~2017-04-27] VITALS: Ht 162.6 cm; Wt 49.2 kg
[2017-04-27] MEDS ORDERED: OMEP20CA12 PO (21:40)
--- NOTE | 2017-04-27 21:54 | ED General ---
General Chief Complaint: Altered Mental Status Stated Complaint: AMS Nursing Triage Note: ALTERED MENTAL STATUS, UNKNOWN LAST WELL TIME. PT REPORTS "FEELING DIFFERENT" Nursing Sepsis Screen: No Definite Risk Source of Information: Patient, Caregiver Exam Limitations: Other (PT WILL NOT STATE ANY COMPLAINTS, AND HEAVY TRUCK TECHNICIAN IS A VERY LIMITED HISTORIAN) History of Present Illness Time Seen by Provider: 21:45 Initial Comments PT ARRIVES VIA POV WITH HEAVY TRUCK TECHNICIAN PER HEAVY TRUCK TECHNICIAN, PT HAS HAD GRADUAL DECREASED IN TALKING FOR THE LAST COUPLE OF MONTHS--HE REPORTS THAT PT "WILL TALK A LITTLE WHEN HE FIRST WAKES UP, THEN WON' T TALK FOR THE REST OF THE DAY"-GRADUALLY GETTING WORSE PT IS ABLE TO ANSWER YES/NO QUESTIONS APPROPRIATELY, KNOWS DATE PT DENIES HAVING ANY PAIN ANYWHERE PT DENIES NAUSEA/VOMITING/DIARRHEA HEAVY TRUCK TECHNICIAN STATES PT WAS HOLDING HIS STOMACH EARLIER TODAY,, BUT PT DENIES HAVING ANY ABDOMINAL PAIN PT WITH KNOWN LUNG CANCER AND HAD RECEIVED CHEMO AND RADIATION, BUT HAS NOT HAD ANY TREATMENTS FOR AT LEAST A MONTH, PER HEAVY TRUCK TECHNICIAN PCP:UNKNOWN ONCOLOGY: DR. BAEZ Allergies and Home Medications Allergies Coded Allergies: Penicillins (Verified Allergy, Intermediate, ITCHING/SWELLING, 12/16/16) aspirin (Verified Allergy, Intermediate, ITCHING/SWELLING, 12/16/16) Home Medications Albuterol Sulfate 1 Puff Puff, 2 PUFF IH Q4H, (Reported) 1 PUFF = 90 MCG Lisinopril 5 Mg Tablet, 5 MG PO DAILY, (Reported) Omeprazole 20 Mg Capsule., #30 (Reported) Constitutional: other (PER HPI) Past Ypgxque-Pmvevx-Qnafkw Hx Patient Social History Alcohol Use: Denies Use Recreational Drug Use: No Smoking Status: Former Smoker Recent Foreign Travel: No Contact w/Someone Who Travel: No Recent Infectious Disease Expo: No Recent Hopitalizations: No Immunizations Up To Date Tetanus Booster (TDap): Unknown Seasonal Allergies Seasonal Allergies: Yes (MILD) Surgeries HX Surgeries: Yes Surgeries: Tonsillectomy Respiratory Hx Respiratory Disorders: Yes (LUNG MASS/CANCER) Respiratory Disorders: Asthma, COPD Cardiovascular Hx Cardiac Disorders: Yes Cardiac Disorders: Hypertension Neurological Hx Neurological Disorders: No Reproductive System Hx Reproductive Disorders: No Sexually Transmitted Disease: No HIV/AIDS: No Genitourinary Hx Genitourinary Disorders: No Gastrointestinal Hx Gastrointestinal Disorders: Yes Gastrointestinal Disorders: Gastroesophageal Reflux Musculoskeletal Hx Musculoskeletal Disorders: Yes (FROM TUMOR) Musculoskeletal Disorders: Chronic Back Pain Endocrine Hx Endocrine Disorders: No HEENT HX ENT Disorders: Yes (GLASSES) Loss of Vision: Bilateral Hearing Impairment: Denies Cancer Hx Cancer: Yes (LUNG CANCER DX 12/2016--[place] WITH CHEMO AND RADIATION) Cancer: Lung Psychosocial Hx Psychiatric Problems: Yes (RELATED TO RECENT MEDICAL PROBLEMS) Behavioral Health Disorders: Anxiety Integumentary HX Skin/Integumentary Disorder: No Blood Transfusions Hx Blood Disorders: No Adverse Reaction to a Blood Tr: No (N/A) Physical Exam Vital Signs Vital Sign - Last 12Hours 04/27/17 21:40 Temp 97.8 Pulse 103 Resp 16 B/P (MAP) 118/82 Pulse Ox 99 O2 Delivery Room Air Capillary Refill : Less Than 3 Seconds General Appearance: No Apparent Distress, WD/WN, Thin HEENT: PERRL/EOMI, Normal ENT Inspection Neck: Full Range of Motion, Normal Inspection, Non Tender, Supple Respiratory: Normal Breath Sounds, No Accessory Muscle Use, No Respiratory Distress Cardiovascular: Regular Rate, Rhythm, No Edema, No Gallop, No JVD, No Murmur, Normal Peripheral Pulses Gastrointestinal: Normal Bowel Sounds, No Organomegaly, No Pulsatile Mass, Non Tender, Soft Back: No CVA Tenderness, No Vertebral Tenderness Extremity: Normal Capillary Refill, Normal Inspection, Normal Range of Motion, Non Tender, No Calf Tenderness, No Pedal Edema Neurologic/Psychiatric: Alert, No Motor/Sensory Deficits, oil painter II-XII Norm as Tested, Other (FLAT AFFECT, WILL ANSWER A FEW YES/NO QUESTIONS, OTHERWISE DOES NOT TALK. HE IS ORIENTED TO PERSON, PLACE, KNOWS NAME//WEIGHT/HEIGHT, AND DOES NOT APPEAR TO BE CONFUSED, BUT WILL NOT ANSWER ANY OTHER QUESTIONS EXCEPT YES/NO QUESTIONS. PT IS ABLE TO FOLLOW COMMANDS. DOES APPEAR SOMEWHAT WEAK ON STANDING, BUT CAN STAND ON HIS OWN. ) Skin: Normal Color, Warm/Dry Progress/Results/Core Measures Results/Orders Lab Results Laboratory Tests Test 04/27/17 21:30 04/27/17 21:50 04/27/17 22:20 Range/Units Urine Color YELLOW Urine Clarity CLEAR Urine pH 7 5-9 Urine Specific [place] 1.010 L 1.016-1.022 Urine Protein NEGATIVE NEGATIVE Urine Glucose (UA) NEGATIVE NEGATIVE Urine Ketones NEGATIVE NEGATIVE Urine Nitrite NEGATIVE NEGATIVE Urine Bilirubin NEGATIVE NEGATIVE Urine Urobilinogen NORMAL NORMAL MG/DL Urine Leukocyte Esterase NEGATIVE NEGATIVE Urine RBC (Auto) NEGATIVE NEGATIVE Urine RBC NONE /HPF Urine WBC RARE /HPF Urine Crystals NONE /LPF Urine Bacteria NEGATIVE /HPF Urine Casts NONE /LPF Urine Mucus NEGATIVE /LPF Urine Culture Indicated NO Urine Opiates Screen NEGATIVE NEGATIVE Urine Oxycodone Screen NEGATIVE NEGATIVE Urine Methadone Screen NEGATIVE NEGATIVE Urine Propoxyphene Screen NEGATIVE NEGATIVE Urine Barbiturates Screen NEGATIVE NEGATIVE Ur Tricyclic Antidepressants Screen NEGATIVE NEGATIVE Urine Phencyclidine Screen NEGATIVE NEGATIVE Urine Amphetamines Screen NEGATIVE NEGATIVE Urine Methamphetamines Screen NEGATIVE NEGATIVE Urine Benzodiazepines Screen NEGATIVE NEGATIVE Urine Cocaine Screen NEGATIVE NEGATIVE Urine Cannabinoids Screen NEGATIVE NEGATIVE White Blood Count 14.2 H 4.3-11.0 10^3/uL Red Blood Count 3.68 L 4.35-5.85 10^6/uL Hemoglobin 12.1 L 13.3-17.7 G/DL Hematocrit 35 L 40-54 % Mean Corpuscular Volume 95 80-99 FL Mean Corpuscular Hemoglobin 33 25-34 PG Mean Corpuscular Hemoglobin Concent 35 32-36 G/DL Red Cell Distribution Width 16.4 H 10.0-14.5 % Platelet Count 381 130-400 10^3/uL Mean Platelet Volume 8.5 7.4-10.4 FL Neutrophils (%) (Auto) 86 H 42-75 % Lymphocytes (%) (Auto) 5 L 12-44 % Monocytes (%) (Auto) 8 0-12 % Eosinophils (%) (Auto) 0 0-10 % Basophils (%) (Auto) 0 0-10 % Neutrophils # (Auto) 12.3 H 1.8-7.8 X 10^3 Lymphocytes # (Auto) 0.7 L 1.0-4.0 X 10^3 Monocytes # (Auto) 1.1 H 0.0-1.0 X 10^3 Eosinophils # (Auto) 0.1 0.0-0.3 10^3/uL Basophils # (Auto) 0.0 0.0-0.1 10^3/uL Neutrophils % (Manual) 84 % Lymphocytes % (Manual) 8 % Monocytes % (Manual) 3 % Eosinophils % (Manual) 1 % Basophils % (Manual) 1 % Band Neutrophils 3 % Blood Morphology Comment NORMAL Prothrombin Time 13.0 12.2-14.7 SEC INR Comment 1.0 0.8-1.4 Activated Partial Thromboplast Time 36 H 24-35 SEC Sodium Level 124 *L 135-145 MMOL/L Potassium Level 5.1 H 3.6-5.0 MMOL/L Chloride Level 91 L 98-107 MMOL/L Carbon Dioxide Level 21 21-32 MMOL/L Anion Gap 12 5-14 MMOL/L Blood Urea Nitrogen 15 7-18 MG/DL Creatinine 0.85 0.60-1.30 MG/DL Estimat Glomerular Filtration Rate > 60 BUN/Creatinine Ratio 18 Glucose Level 141 H 70-105 MG/DL Calcium Level 9.0 8.5-10.1 MG/DL Magnesium Level 2.0 1.8-2.4 MG/DL Total Bilirubin 0.3 0.1-1.0 MG/DL Aspartate Amino Transf (AST/SGOT) 18 5-34 U/L Alanine Aminotransferase (ALT/SGPT) 10 0-55 U/L Alkaline Phosphatase 77 40-136 U/L Ammonia 35 H 11-32 UMOL/L Troponin I < 0.30 <0.30 NG/ML Total Protein 7.0 6.4-8.2 GM/DL Albumin 3.6 3.2-4.5 GM/DL Amylase Level 47 25-125 U/L Lipase 16 8-78 U/L Free Thyroxine 0.76 0.70-1.48 NG/DL TSH [place] Testing 0.24 L 0.35-4.94 UIU/ML Serum Alcohol < 10 <10 MG/DL My Orders Orders - LAUREN GIMENEZ DO Saline Lock/Iv-Start (04/27/17 21:45) Ekg Tracing (04/27/17 21:45) Monitor-Rhythm Ecg Trace Only (04/27/17 21:45) Ct Head Wo (04/27/17 21:45) Alcohol (04/27/17 21:45) Ammonia (04/27/17 21:45) Cbc With Automated Diff (04/27/17 21:45) Comprehensive Metabolic Panel (04/27/17 21:45) Drug Screen Stat (Urine) (04/27/17 21:45) Magnesium (04/27/17 21:45) Protime With Inr (04/27/17 21:45) Partial Thromboplastin Time (04/27/17 21:45) Thyroid Analyzer (04/27/17 21:45) Troponin I (04/27/17 21:45) Ua Culture If Indicated (04/27/17 21:45) Chest Pa/Lat (2 View) (04/27/17 21:45) Amylase (04/27/17 21:47) Lipase (04/27/17 21:47) Manual Differential (04/27/17 21:50) Saline Lock/Iv-Start (04/27/17 23:05) Ns Iv 1000 Ml (Sodium Chloride 0.9%) (04/27/17 23:05) Free T4 (Free Thyroxine) (04/27/17 22:20) Dexamethasone Injection (Decadron Inject (04/27/17 23:30) Vital Signs/I&O Vital Sign - Last 12Hours 04/27/17 04/28/17 04/28/17 04/28/17 21:40 00:07 00:10 00:10 Temp 97.8 98.0 97.1 Pulse 103 81 103 Resp 16 21 20 B/P (MAP) 118/82 98/70 Pulse Ox 99 97 91 O2 Delivery Room Air Room Air Room Air Room Air 04/28/17 04/28/17 01:29 02:10 Pulse 110 108 Resp 16 B/P (MAP) 148/88 Pulse Ox 92 O2 Delivery Room Air Blood Pressure Mean: 94 Progress Note : Progress Note NO DETERIORATION IN PT'S CONDITION DURING ER STAY ECG Initial ECG Impression Time: 21:59 Initial ECG Rate: 99 Initial ECG Rhythm: Normal Sinus Initial ECG Impression: Normal Initial ECG Comparisson: No Previous ECG Available Diagnostic Imaging Comments CXR--LARGE RUL MASS, PENDING RADIOLOGIST REVIEW CT HEAD--3.8 X 3.2 CM MASS IN LEFT FRONTAL REGION WITH SURROUNDING EDEMA, POSSIBLY METASTATIC LESION ( VS PRIMARY NEOPLASM VS MENINGIOMA VS INFECTIOUS PROCESS) WITH 8 MM MIDLINE SHIFT TO RIGHT. OTHER CHRONIC SMALL VESSEL ISCHEMIC CHANGES, OLD LACUNAR INFARCT--PER [facility] VIA FAX @ [phone] Reviewed: Reviewed by Me Departure Communication Progress Notes 2254--PAGING DR. HODGE, ONCOLOGY BRUISE TRIMMER 2304--PAGING DR. HODGE 2316--PAGING DR. BAEZ 2320--SPOKE WITH DR. BAEZ, ACCEPTS PT FOR ADMIT. ORDERS FOR DECADRON NOTED Impression Impression: Primary Impression: Altered mental status Additional Impressions: LUNG CANCER WITH BRAIN METS Hyponatremia Disposition: ADMITTED INPATIENT Condition: Stable Decision to Admit Reason: Admit from ER (General) Decision to Admit/Date: Apr 27, 2017 Time/Decision to Admit Time: 23:00 Departure-Patient Inst. Referrals: KATHLEEN BAEZ,LOCAL PHYSICIAN (PCP) Primary Care Physician LAUREN GIMENEZ DO Apr 27, 2017 21:54
[2017-04-27 21:58] LABS: BILIRUBIN,URINE NEGATIVE (NEGATIVE); KETONES,URINE NEGATIVE (NEGATIVE); LEUKOCYTE ESTERASE ,URINE NEGATIVE (NEGATIVE); NITRITE,URINE NEGATIVE (NEGATIVE); PH,URINE 7 (5-9); PROTEIN,URINE NEGATIVE (NEGATIVE); UROBILINOGEN,URINE NORMAL (NORMAL)
[2017-04-27 22:02] LABS: BASOPHILS % (AUTO) 0 % (0-10); EOSINOPHILS # (AUTO) 0.1 10^3/uL (0.0-0.3); EOSINOPHILS % (AUTO) 0 % (0-10); LYMPHOCYTES # (AUTO) 0.7 X 10^3 (1.0-4.0); LYMPHOCYTES % (AUTO) 5 % (12-44); MEAN CORPUSCULAR HEMOGLOBIN 33 PG (25-34); MEAN CORPUSCULAR HGB CONC 35 G/DL (32-36); MEAN CORPUSCULAR VOLUME 95 FL (80-99); MEAN PLATELET VOLUME 8.5 FL (7.4-10.4); MONOCYTES # (AUTO) 1.1 X 10^3 (0.0-1.0); MONOCYTES % (AUTO) 8 % (0-12); NEUTROPHILS # (AUTO) 12.3 X 10^3 (1.8-7.8); NEUTROPHILS % (AUTO) 86 % (42-75); PLATELET COUNT 381 10^3/uL (130-400); RED BLOOD COUNT 3.68 10^6/uL (4.35-5.85); RED CELL DISTRIBUTION WIDTH 16.4 % (10.0-14.5); WHITE BLOOD COUNT 14.2 10^3/uL (4.3-11.0)
[2017-04-27 22:09] LABS: WBC,URINE RARE /HPF
[2017-04-27 22:29] LABS: BAND NEUTROPHILS 3 %; BASOPHILS % (MANUAL) 1 %; EOSINOPHILS % (MANUAL) 1 %; LYMPHOCYTES % (MANUAL) 8 %; NEUTROPHILS % (MANUAL) 84 %
[2017-04-27 22:51] LABS: ALANINE AMINOTRANSFERASE 10 U/L (0-55); ALBUMIN 3.6 GM/DL (3.2-4.5); ALCOHOL < 10 MG/DL (<10); AMMONIA 35 UMOL/L (11-32); AMYLASE 47 U/L (25-125); ANION GAP 12 MMOL/L (5-14); ASPARTATE AMINO TRANSFERASE 18 U/L (5-34); BILIRUBIN,TOTAL 0.3 MG/DL (0.1-1.0); BLOOD UREA NITROGEN 15 MG/DL (7-18); BUN/CREATININE RATIO 18; CARBON DIOXIDE 21 MMOL/L (21-32); CHLORIDE 91 MMOL/L (98-107); CREATININE SERUM 0.85 MG/DL (0.60-1.30); GFR ESTIMATED > 60; GLUCOSE 141 MG/DL (70-105); LIPASE 16 U/L (8-78); POTASSIUM 5.1 MMOL/L (3.6-5.0)
[2017-04-27 22:55] LABS: SODIUM 124 MMOL/L (135-145)
[2017-04-27] MEDS ORDERED: NS IV 1000 ML 1,000 ML IV ONE (23:05)
[2017-04-27 23:10] LABS: TROPONIN I < 0.30 NG/ML (<0.30)
[2017-04-27] MEDS ORDERED: DEXAMETHASONE 4 MG/ML SDV (DECADRON) IV ONE (23:30)
[2017-04-28] VITALS (8 sets, daily range): BP systolic 98–171; BP diastolic 70–102
[2017-04-28] MEDS ORDERED: ONDANSETRON 4 MG/2 ML (SDV) Z0FRAN IV PRN (01:15)
[2017-04-28] MEDS ORDERED: morphine INJ 4 MG/ML 1 ML (VIAL/SYRINGE) IV PRN (01:15)
[2017-04-28] MEDS: NS IV 1000 ML 1,000 ML IV SCH ×2 (01:43→16:15)
[2017-04-28] MEDS: DEXAMETHASONE 4 MG/ML SDV (DECADRON) IV SCH ×4 (04:42→22:16)
[2017-04-28 06:04] LABS: BASOPHILS % (AUTO) 0 % (0-10); EOSINOPHILS % (AUTO) 0 % (0-10); LYMPHOCYTES # (AUTO) 0.3 X 10^3 (1.0-4.0); LYMPHOCYTES % (AUTO) 2 % (12-44); MEAN CORPUSCULAR HEMOGLOBIN 33 PG (25-34); MEAN CORPUSCULAR HGB CONC 34 G/DL (32-36); MEAN CORPUSCULAR VOLUME 95 FL (80-99); MEAN PLATELET VOLUME 8.7 FL (7.4-10.4); MONOCYTES # (AUTO) 0.1 X 10^3 (0.0-1.0); MONOCYTES % (AUTO) 1 % (0-12); NEUTROPHILS # (AUTO) 12.8 X 10^3 (1.8-7.8); NEUTROPHILS % (AUTO) 97 % (42-75); PLATELET COUNT 379 10^3/uL (130-400); RED BLOOD COUNT 3.71 10^6/uL (4.35-5.85); WHITE BLOOD COUNT 13.2 10^3/uL (4.3-11.0)
[2017-04-28 06:22] LABS: ALANINE AMINOTRANSFERASE 11 U/L (0-55); ALBUMIN 3.7 GM/DL (3.2-4.5); ANION GAP 12 MMOL/L (5-14); ASPARTATE AMINO TRANSFERASE 15 U/L (5-34); BILIRUBIN,TOTAL 0.3 MG/DL (0.1-1.0); BLOOD UREA NITROGEN 15 MG/DL (7-18); BUN/CREATININE RATIO 18; CALCIUM 9.3 MG/DL (8.5-10.1); CARBON DIOXIDE 21 MMOL/L (21-32); CHLORIDE 98 MMOL/L (98-107); CREATININE SERUM 0.84 MG/DL (0.60-1.30); GFR ESTIMATED > 60; GLUCOSE 175 MG/DL (70-105); POTASSIUM 4.6 MMOL/L (3.6-5.0); SODIUM 131 MMOL/L (135-145); TOTAL PROTEIN 6.9 GM/DL (6.4-8.2)
--- NOTE | 2017-04-28 07:04 | Diagnostic Imaging Report ---
PROCEDURE: CT head without contrast. TECHNIQUE: Multiple contiguous axial images were obtained through the brain without the use of intravenous contrast. INDICATION: Lung cancer and altered mental status. FINDINGS: Ventricles and sulci are prominent with an approximately 3.8 x 3.3 cm hyperdense focus involving the deep white matter of the left frontal lobe extending to the level of the genu of corpus callosum. This does demonstrate surrounding vasogenic edema and rightward bowing of the interhemispheric falx. No other definite mass or hemorrhage is identified. Small lucency in the left thalamus may represent nonacute lacunar infarct. Calvarium is intact. Ventricles remain symmetric in overall size. There does appear to be mild effacement of left frontal lobe sulci. IMPRESSION: 3.8 x 3.3 cm left frontal lobe mass with surrounding vasogenic edema and mild rightward shift of midline is most compatible with metastatic disease. No other acute intracranial abnormality such as hemorrhage is identified. Dictated by: Dictated on workstation # [id number]
--- NOTE | 2017-04-28 07:14 | Diagnostic Imaging Report ---
INDICATION: Lung cancer PA and lateral views of the chest are obtained. Comparison is made to study of 12/18/2016. The dominant mass involving the upper lobe of the right lung is similar in appearance. This measures approximately 12-13 cm in the craniocaudad dimension. There is mild rightward deviation of the lower trachea indicating retraction possibly due to scarring. No other definite mass identified and there is no evidence of pneumothorax. IMPRESSION: Dominant mass in the upper lobe of the right lung remains most compatible with lung cancer. No definite acute abnormality is seen. Dictated by: Dictated on workstation # [id number]
[2017-04-28] MEDS ORDERED: BECL8.7A6 INH (10:32)
[2017-04-28] MEDS: PANTOPRAZOLE 40 MG (PROTONIX) TAB PO SCH (16:45)
[2017-04-28] MEDS: lisINopril 10 MG (PRINIVIL) TAB PO SCH (16:45)
[2017-04-29] VITALS: BP 148/80
[2017-04-29] MEDS: NS IV 1000 ML 1,000 ML IV SCH ×3 (01:26→17:46)
[2017-04-29 04:51] LABS: BASOPHILS % (AUTO) 0 % (0-10); EOSINOPHILS % (AUTO) 0 % (0-10); LYMPHOCYTES # (AUTO) 0.5 X 10^3 (1.0-4.0); LYMPHOCYTES % (AUTO) 3 % (12-44); MEAN CORPUSCULAR HEMOGLOBIN 33 PG (25-34); MEAN CORPUSCULAR HGB CONC 34 G/DL (32-36); MEAN CORPUSCULAR VOLUME 96 FL (80-99); MEAN PLATELET VOLUME 9.1 FL (7.4-10.4); MONOCYTES # (AUTO) 0.9 X 10^3 (0.0-1.0); MONOCYTES % (AUTO) 5 % (0-12); NEUTROPHILS # (AUTO) 16.1 X 10^3 (1.8-7.8); NEUTROPHILS % (AUTO) 92 % (42-75); PLATELET COUNT 401 10^3/uL (130-400); RED BLOOD COUNT 3.64 10^6/uL (4.35-5.85); RED CELL DISTRIBUTION WIDTH 16.7 % (10.0-14.5); WHITE BLOOD COUNT 17.6 10^3/uL (4.3-11.0)
[2017-04-29 05:14] LABS: ANION GAP 11 MMOL/L (5-14); BLOOD UREA NITROGEN 22 MG/DL (7-18); BUN/CREATININE RATIO 27; CALCIUM 9.4 MG/DL (8.5-10.1); CARBON DIOXIDE 21 MMOL/L (21-32); CHLORIDE 107 MMOL/L (98-107); CREATININE SERUM 0.82 MG/DL (0.60-1.30); GFR ESTIMATED > 60; GLUCOSE 165 MG/DL (70-105); POTASSIUM 5.1 MMOL/L (3.6-5.0); SODIUM 139 MMOL/L (135-145)
[2017-04-29] MEDS: DEXAMETHASONE 4 MG/ML SDV (DECADRON) IV SCH ×4 (05:14→23:23)
[2017-04-29] MEDS: PANTOPRAZOLE 40 MG (PROTONIX) TAB PO SCH (06:08)
[2017-04-29 08:00] VITALS: BP 170/82
[2017-04-29] MEDS: lisINopril 10 MG (PRINIVIL) TAB PO SCH (08:44)
[2017-04-29] MEDS ORDERED: lisINopril 10 MG (PRINIVIL) TAB PO SCH (09:00)
--- NOTE | 2017-04-29 09:53 | HISTORY AND PHYSICAL ---
DATE OF ADMISSION: 04/27/2017 The patient is admitted to Room 417. PRESENTING COMPLAINT: Increasing confusion. Mr. Membreno is a 61-year-old male with history of stage 3A poorly differentiated non-small cell lung cancer and had completed combined chemotherapy and radiation on 03/11/2017. He was starting adjuvant chemotherapy last week for 2 additional months. His friend brought him to the emergency room on 04/27/2017 because of increasing confusion. The patient underwent a work-up which showed evidence of metastatic disease of the left frontal lobe with surrounding vasogenic edema. He was also noted to be hyponatremic. He was started on steroids and admitted to the hospital for appropriate management. Today morning, patient was still somewhat confused, but more awake, and oriented and denied any headaches or visual changes. Denied any nausea or vomiting. He indicated that he has not been feeling well for 1 to 2 weeks with increasing confusion and generalized weakness. PAST MEDICAL HISTORY: 1. Past medical history is significant for hypertension diagnosed 5 to 6 years ago. 2. Gastroesophageal reflux disease, which is long-standing. 3. COPD for the last 10 years. PREVOUS SURGERY: Tonsillectomy and adenoidectomy in childhood. SOCIAL HISTORY: The patient is single and was living with a friend in [place]. He has no children of his own. Previously he has worked at [employer] in [place] for the past 5 to 6 years. 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 He has smoked significantly averaging at least 2 packs a day for 40 years and quit September 2016. No history of alcohol or other recreational drug use. FAMILY HISTORY: Significant for a maternal aunt with colon cancer at the age of 70 years. A paternal aunt was diagnosed with an unknown malignancy while in her 80s. No other major medical problems in the family that the patient knows of. PHYSICAL EXAMINATION: Physical examination today showed an elderly male, thin appearing, awake, and answering questions fairly, although having difficulty remembering details. Temperature was 97.6, pulse rate 75, respirations 20, blood pressure 160/102, and oxygen saturation of 90% on room air. HEENT: Normocephalic, with male pattern baldness. Extraocular muscles intact. Conjunctivae pink, oral mucosa moist without lesions. NECK: Supple with no JVD. No cervical, supraclavicular, or axillary lymphadenopathy palpable. CHEST: Chest was symmetrical. LUNGS: With decreased breath sounds bilaterally without wheezes or rales. CARDIOVASCULAR EXAM: Regular in rate and rhythm. No murmurs or gallops heard. ABDOMEN: Soft, nontender, with no hepatosplenomegaly or other masses palpable. EXTREMITIES: No edema. NEUROLOGICAL EXAM: Showed no focal motor deficits. LABORATORY: CBC done at the time of evaluation at the emergency room showed WBC 14.2, hemoglobin 12.1, platelet count of 381,000 with neutrophil count of 12.3. Chemistry panel done at the emergency room showed serum sodium level of 124, potassium level of 5.1, BUN was 15 and creatinine 0.85 with GFR more than 60 mL per minute. Liver function studies within normal limits. Repeat chemistry done today morning had shown sodium level has improved to 131. The rest of the electrolytes normal and renal function normal. Nonfasting glucose was 175 and normal liver function studies. CT scan of the head done at the emergency room showed a 3.8 x 3.3 cm left frontal lobe mass with surrounding vasogenic edema and mild rightward shift of midline compatible with metastatic disease. No other acute intracranial abnormality identified. IMPRESSION: 1. Mental status changes due to metastatic non-small cell lung cancer to the brain. 2. Hyponatremia most likely due to above. 3. History of poorly differentiated non-small cell lung cancer (s/l failing) adenocarcinoma, status post combined chemoradiation completed on 03/11/2017. PLAN: 1. The patient has been started on dexamethasone 10 mg IV bolus at the emergency room and we will continue 4 mg IV q.6 hours. 2. Obtain a radiation oncology consultation for palliative whole brain radiation therapy. 3. We will start him on Protonix for GI protection especially with high-dose steroids. 4. Continue to monitor his blood pressure and readjust his medications as needed. 5. Discontinued adjuvant chemotherapy and once the whole brain radiation therapy is completed we will restage the patient and discuss about palliative treatments. 6. Obtain social service consult for him. 7. His overall prognosis is guarded. 8. We will not start him on Lovenox for VTE prophylaxis because of risk of intracranial bleeding. I will continue to use SCDs in the interim and will ambulate patient when stable. Job ID: [id number] Dictated Date: 04/28/2017 18:23:04 Scratch Finisher Date: 04/29/2017 09:28:37/cheng
--- NOTE | 2017-04-29 11:38 | History & Physicial ---
History of Present Illness History of Present Illness Reason for visit/HPI Brain metastasis from lung cancer primary *61 y/o white male [place], [place] resident well known to me from recent definitive lung xrt with concurrent chemotherapy for his Non-small cell lung cancer, RUL. *He received 70.2 Gy completed 03/11/17. *04/22/17 Rad Onc follow up patient's main complaint was fatigue from ongoing chemotherapy. *04/27/17 Patient presented to [facility] with caregiver (? aunt from [place]). She had noticed a progressive decrease in his volume of speech and getting worse. Patient voiced no complaints. *CT Head performed for altered mental status -- A 3.8 x 3.3 cm left frontal lobe mass with surrounding vasogenic edema and mild rightward shift of midline is most compatible with metastatic disease. No other acute intracranial abnormality such as hemorrhage is identified. *Dr. Baez notified. Orders for initiation of Decadron given. The patient was admitted for further evaluation. *A radiation oncology referral was made for evaluation and consideration of palliative brain xrt; thus my visit with the patient today. Date of Admission Apr 27, 2017 at 23:00 Date Seen by Provider: Apr 29, 2017 Time Seen by Provider: 09:00 I consulted on this patient on 04/29/17 0900 Attending Physician Kathleen Baez Admitting Physician Bing,Local Physician Consult Maicol Hopper Radiation Oncology Allergies and Home Medications Allergies Coded Allergies: Penicillins (Verified Allergy, Intermediate, ITCHING/SWELLING, 12/16/16) aspirin (Verified Allergy, Intermediate, ITCHING/SWELLING, 12/16/16) Home Medications Albuterol Sulfate 1 Puff Puff, 2 PUFF IH Q4H PRN for SHORTNESS OF BREATH, ( Reported) 1 PUFF = 90 MCG Beclomethasone Dipropionate 8.7 Gm Aer.w.adap, 1 PUFF INH BID PRN for SHORTNESS OF BREATH, (Reported) Lisinopril 5 Mg Tablet, 5 MG PO DAILY, (Reported) Omeprazole 20 Mg Capsule.dr, 20 MG PO DAILY, (Reported) Past Gswudra-Xwnttk-Ehgmjj Hx Patient Social History Marrital Status: single Number of Children: 0 Employed/Student: employed (Had been employed with [employer] in [place], [place]) Alcohol Use: Denies Use Recreational Drug Use: No Smoking Status: Former Smoker (He has a 40 year history of smoking 2-3 ppd. Quitting in Sep 2016.) Type Used: Cigarettes Physical Abuse Screen: No Sexual Abuse: No Recent Foreign Travel: No Contact w/other who traveled: No Recent Hopitalizations: No Recent Infectious Disease Expo: No Immunizations Up To Date Tetanus Booster (TDap): Unknown Seasonal Allergies Seasonal Allergies: No Surgeries HX Surgeries: Yes (Bronchoscopy with biopsy 12/18/16) Surgeries: Tonsillectomy Respiratory Hx Respiratory Disorders: Yes (LUNG MASS/CANCER) Respiratory Disorders: Asthma, COPD Cardiovascular Hx Cardiovascular Disorders: Yes Cardiac Disorders: Hypertension Neurological Hx Neurological Disorders: No Reproductive System Hx Reproductive Disorders: No Sexually Transmitted Disease: No HIV/AIDS: No Genitourinary Hx Genitourinary Disorders: No Gastrointestinal Hx Gastrointestinal Disorders: Yes Gastrointestinal Disorders: Gastroesophageal Reflux Musculoskeletal Hx Musculoskeletal Disorders: Yes (FROM TUMOR) Musculoskeletal Disorders: Chronic Back Pain Endocrine Hx Endocrine Disorders: No HEENT HX ENT Disorders: Yes (GLASSES) Loss of Vision: Denies Hearing Impairment: Denies Cancer Hx Cancer: Yes (LUNG CANCER DX 12/2016--[place] WITH CHEMO AND RADIATION) Cancer: Lung Psychosocial Hx Psychiatric Problems: Yes (RELATED TO RECENT MEDICAL PROBLEMS) Behavioral Health Disorders: Anxiety Integumentary HX Skin/Integumentary Disorder: No Blood Transfusions Hx Blood Disorders: No Adverse Reaction to a Blood Tr: No Family Medical History Family Hx: Patient reports no known family medical history. Constitutional: no symptoms reported, chills, diaphoresis, dizziness, fever, malaise, weight gain, weight loss, other (reports food tastes good and has a good appetite) EENTM: no symptoms reported Respiratory: no symptoms reported Cardiovascular: no symptoms reported Gastrointestinal: no symptoms reported Genitourinary: no symptoms reported Musculoskeletal: no symptoms reported Skin: no symptoms reported Psychiatric/Neurological: Other (Positive for gait disturbance, word searching and short term memory loss. Reports having right arm weakness also.Denies headaches, seizures and visual disturbance) Physical Exam Vital Signs Vital Sign - Last 12Hours 04/27/17 21:40 Temp 97.8 Pulse 103 Resp 16 B/P (MAP) 118/82 Pulse Ox 99 O2 Delivery Room Air Capillary Refill : Less Than 3 Seconds General Appearance: No Apparent Distress, Thin Eyes: Bilateral Eye Other (wearing glasses), Bilateral Eye PERRL Neck: Full Range of Motion Respiratory: No Accessory Muscle Use, No Respiratory Distress Cardiovascular: No Edema Rectal: Deferred Extremity: Normal Range of Motion, No Pedal Edema Neurologic/Psychiatric: Alert, No Motor/Sensory Deficits, Other (Oriented to person and knew he was in the hospital but thought [place]. Able to verbalize president's name. When questioned he would answer yes/no questions easily but had some difficulty with finding words otherwise. He is unsteady when standing/gait but can stand on his own. ) Skin: Normal Color, Warm/Dry Assessment/Plan Assessment and Plan *Solitary brain metastasis from NSC lung cancer primary *Decadron initiated 04/27/17 *In need of palliative whole brain radiotherapy *Discussed CT head findings with patient and the need for palliative WBI to maintain/improve current neurological status. *The patient was offered a 2 to 2 1/2 week course of treatment. *We would attempt to deliver 30 Gy / 10 fxs to the whole brain with a possible 3 fx boost to the left frontal lobe mass. *The acute toxicities, predatory animal exterminator complications, logistics and hoped for benefits were reviewed. *The patient stated understanding the information presented to him in verbal and written form. *He did wish to proceed. *A treatment planning ct simulation will be performed today. *Initiation of his palliative xrt will begin in the near future. Problems: Admission Diagnosis Altered mental status Lung cancer with brain metastasis Hyponatremia Clinical Quality Measures DVT/VTE Risk/Contraindication: Risk Factor Score Per Nursin RFS Level Per Nursing on Admit: 4+=Very High Other: Brain metastasis and risk of intracranial bleeding. Copy Copies To 1: KATHLEEN BAEZ DUANE E MD Apr 29, 2017 11:38
[2017-04-29 15:40] VITALS: BP 129/88
[2017-04-29] MEDS ORDERED: POLYETHYLENE GLYCOL 17 GM (MIRALAX) PACK PO NR ×2 (16:15→21:00)
--- NOTE | 2017-04-29 16:19 | Progress Note-Standard ---
Standard Progress Note Progress Notes/Assess & Plan Date Seen by Provider: Apr 29, 2017 Time Seen by Provider: 16:13 Progress/Assessment & Plan 61-year-old male admitted with mental status changes and found to have solitary large metastasis to the left frontal lobe with midline shift. He has history of non-small cell lung cancer and has completed definitive chemoradiation. Patient is feeling much better today and he is alert and oriented. He is eating better. He complained of constipation. Completed radiation oncology consult and simulation today. Scheduled to start radiation therapy to whole brain tomorrow. Physical examination is stable. Laboratory Tests 04/29/17 04:09 A/P: 1. Mental status changes due to solitary brain metastasis in the left frontal lobe with edema and midline shift. Currently on dexamethasone 4 mg IV every 6 hours. Continue. We will switch this to oral starting tomorrow. 2. Non-small cell lung cancer, status post definitive chemoradiation. 3. Hyponatremia due to number 1. Currently on normal saline IV and normalization of sodium level. I will decrease the normal saline to 30 mL per hour for today and will DC this tomorrow. Repeat BMP in a.m. 4. Constipation, we will administer 1 dose of MiraLAX tonight. 5. clinical services specialist following patient for help with discharge planning. KATHLEEN BAEZ Apr 29, 2017 16:19
[2017-04-29 23:45] VITALS: BP 163/80
[2017-04-30] MEDS: DEXAMETHASONE 4 MG/ML SDV (DECADRON) IV SCH ×3 (05:04→16:14)
[2017-04-30 05:15] LABS: ANION GAP 14 MMOL/L (5-14); BLOOD UREA NITROGEN 22 MG/DL (7-18); BUN/CREATININE RATIO 24; CALCIUM 9.8 MG/DL (8.5-10.1); CARBON DIOXIDE 20 MMOL/L (21-32); CHLORIDE 107 MMOL/L (98-107); CREATININE SERUM 0.92 MG/DL (0.60-1.30); GFR ESTIMATED > 60; GLUCOSE 160 MG/DL (70-105); POTASSIUM 4.2 MMOL/L (3.6-5.0); SODIUM 141 MMOL/L (135-145)
[2017-04-30] MEDS: PANTOPRAZOLE 40 MG (PROTONIX) TAB PO SCH (06:24)
[2017-04-30 08:00] VITALS: BP 165/77
[2017-04-30] MEDS: lisINopril 10 MG (PRINIVIL) TAB PO SCH (09:02)
[2017-04-30] MEDS: NS IV 1000 ML 1,000 ML IV SCH (15:56)
[2017-04-30 16:00] VITALS: BP 161/86
--- NOTE | 2017-04-30 16:14 | Progress Note-Standard ---
Standard Progress Note Progress Notes/Assess & Plan Date Seen by Provider: Apr 30, 2017 Time Seen by Provider: 16:09 Progress/Assessment & Plan 61-year-old male admitted with mental status changes and found to have solitary large metastasis to the left frontal lobe with edema and midline shift. He has history of non-small cell lung cancer and has completed definitive chemoradiation. Patient is feeling better today and he is alert and oriented. Per nursing staff he has periods of confusion. He is eating better. Started radiation therapy to whole brain today. Physical examination is stable and unchanged. Laboratory Tests 04/30/17 04:02 A/P: 1. Mental status changes due to solitary brain metastasis in the left frontal lobe with edema and midline shift. Currently on dexamethasone 4 mg IV every 6 hours. We will change to oral today. 2. Non-small cell lung cancer, status post definitive chemoradiation. 3. Hyponatremia due to number 1. IV normal saline will be discontinued today. Monitor BMP tomorrow. 4. Constipation, improved. Laxatives as needed. 5. I will consult physical therapy for strengthening and gait. 6. dining services manager following patient for help with discharge planning. KATHLEEN BAEZ Apr 30, 2017 16:14
[2017-04-30] MEDS: DEXAMETHASONE 4 MG TAB (DECADRON) PO SCH (21:00)
[2017-04-30 23:35] VITALS: BP 132/72
[2017-05-01] MEDS: DEXAMETHASONE 4 MG TAB (DECADRON) PO SCH ×4 (03:44→21:17)
[2017-05-01] MEDS: PANTOPRAZOLE 40 MG (PROTONIX) TAB PO SCH (05:35)
[2017-05-01 06:17] LABS: ANION GAP 11 MMOL/L (5-14); BLOOD UREA NITROGEN 24 MG/DL (7-18); BUN/CREATININE RATIO 25; CALCIUM 9.6 MG/DL (8.5-10.1); CARBON DIOXIDE 24 MMOL/L (21-32); CHLORIDE 103 MMOL/L (98-107); CREATININE SERUM 0.95 MG/DL (0.60-1.30); GFR ESTIMATED > 60; GLUCOSE 151 MG/DL (70-105); POTASSIUM 4.4 MMOL/L (3.6-5.0); SODIUM 138 MMOL/L (135-145)
[2017-05-01 08:00] VITALS: BP 152/88
[2017-05-01] MEDS: lisINopril 10 MG (PRINIVIL) TAB PO SCH (09:43)
--- NOTE | 2017-05-01 10:51 | Physical Therapy Evaluation ---
PT Evaluation-General Medical Diagnosis Admission Date Apr 27, 2017 at 23:00 Medical Diagnosis: AMS/hyponatremia Onset Date: Apr 27, 2017 Therapy Diagnosis Therapy Diagnosis: debility Height/Weight Height (Feet): 5 Height (Inches): 4.00 Weight (Pounds): 108 Weight (Ounces): 6.0 Precautions Precautions/Isolations: Fall Prevention, Standard Precautions Referral Physician: Sincere Reason for Referral: Evaluation/Treatment Medical History Pertinent Medical History: COPD, HTN Additional Medical History lung cancer with mets to brain Current History currently on palliative whole brain radiation Reviewed History: Yes Social History Home: Multilevel Current Living Status: Friend Prior/Core FIM Prior Level of Function Functional [place] Measure 0=Not Assessed/NA 4=Minimal Assistance 1=Total Assistance 5=Supervision or Setup 2=Maximal Assistance 6=Modified [place] 3=Moderate Assistance 7=Complete [place] Bed Mobility: 7 Transfers (B,C,W/C) (FIM): 7 Gait: 7 PT Evaluation-Current Subjective Patient agrees to PT. No c/o at this time. Pain Numeric Pain Scale: 0-No Pain Location: No Pain Reported Objective Patient Orientation: Person, Time, Situation Problem Solving: Fair ROM/Strength ROM Lower Extremities bilateral LE WNL Strenght Lower Extremities bilateral LE WNL Integumentary/Posture Integumentary refer to nursing notes Bowel Incontinence: No Bladder Incontinence: No Posture WNL Neuromuscular (Tone, Coordination, Reflexes) grossly intact Sensory Vision: Wears Glasses Hearing: Functional Sensation Right Lower Extremit: Intact Sensation Left Lower Extremity: Intact Transfers Functional Turner Measure 0=Not Assessed/NA 4=Minimal Assistance 1=Total Assistance 5=Supervision or Setup 2=Maximal Assistance 6=Modified [place] 3=Moderate Assistance 7=Complete [place] Transfers (B, C, W/C) (FIM): 7 Scootin Rollin Supine to/from Sit: 7 Sit to/from Stand: 7 Gait Mode of Locomotion: Walk Anticipated Mode of Locomotion: Walk Gait (FIM): 6 Distance (FIM): 3=150 ft Distance: >800' Gait Level of Assist: 6 Gait Assistive Device: FWW Comments/Gait Description safe and functional with FWW Balance Sitting Static: Normal Sitting Dynamic: Normal Standing Static: Normal Standing Dynamic: Normal Assessment/Needs 61 y.o. male, will be seen short term by skilled PT to ensure safe mobility with or without FWW. Nursing instructed to ambulate with patient PRN in hallway. Rehab Potential: Poor Post Rehab Potential-Barriers: metaststic cancer PT Fci Goals Fci Goals PT Rn Forensic Goals Time Frame: May 06, 2017 Transfers (B,C,W/C) (FIM): 7 Gait (FIM): 7 Gait distance (FIM): 3=150 ft Gait Level of Assist: 7 Gait Assistive Device: None, FWW PT Plan Problem List Problem List: Activity Tolerance, Functional Strength, Safety Treatment/Plan Treatment Plan: Continue Plan of Care Treatment Plan: Education, Functional Activity Rodrigo, Functional Strength, Gait , Safety, Therapeutic Exercise, Transfers Treatment Duration: May 06, 2017 Frequency: 5 times per week Estimated Hrs Per Day: .25 hour per day Patient and/or Family Agrees t: Yes Time/GCodes Time In: 951 Time Out: 1011 Total Billed Treatment Time: 20 Total Billed Treatment 1 visit EVLowC 20 min MONICA QUEVEDO PT May 01, 2017 10:51
[2017-05-01 16:00] VITALS: BP 142/87
--- NOTE | 2017-05-01 18:24 | Progress Note-Standard ---
Standard Progress Note Progress Notes/Assess & Plan Date Seen by Provider: May 01, 2017 Time Seen by Provider: 18:00 Progress/Assessment & Plan 61-year-old male admitted with mental status changes and found to have solitary large metastasis to the left frontal lobe with edema and midline shift. He has history of non-small cell lung cancer and has completed definitive chemoradiation. Patient is feeling better today and he is alert and oriented. Still having periods of confusion intermittently. He is eating better. He denied any mouth sores or difficulty swallowing. Ambulated well with physical therapy. Vital Sign - Last 12Hours Date Time Temp Pulse Resp B/P (MAP) Pulse Ox O2 Delivery O2 Flow Rate FiO2 05/01/17 16:00 98.9 100 20 142/87 98 Room Air Physical examination showed an elderly male, thin appearing, awake and answering questions fairly although having difficulty remembering details. Oral mucosa moist without lesions. Neurological examination grossly intact without focal motor deficits. Laboratory Tests 05/01/17 05:30 A/P: 1. Mental status changes due to solitary brain metastasis in the left frontal lobe with edema and midline shift. Currently on dexamethasone 4 mg orally every 6 hours. 2. Currently on palliative whole brain radiation therapy day #2. Continue. 2. History of non-small cell lung cancer, status post definitive chemoradiation. 4. Hyponatremia due to # 1. currently resolved. 5. Physical therapy evaluation noted. Patient is ambulating well with minimal to no assistance. Continue. 6. information services manager following patient for help with discharge planning. Patient and his friend word like for the patient to go home and continue radiation as an outpatient. I will reevaluate him tomorrow and decide about discharge. KATHLEEN BAEZ May 01, 2017 18:24
[2017-05-02 00:49] VITALS: BP 148/88
[2017-05-02] MEDS: PANTOPRAZOLE 40 MG (PROTONIX) TAB PO SCH (05:35)
[2017-05-02] MEDS: DEXAMETHASONE 4 MG TAB (DECADRON) PO SCH ×2 (05:35→10:48)
[2017-05-02 07:45] VITALS: BP 157/89
--- NOTE | 2017-05-02 10:05 | Physical Therapy Daily Note ---
PT Daily Note-Current Subjective Pt. states he feels stronger and hopes to DC today. Wants to be on his feet for gait and exercise Pain Numeric Pain Scale: 0-No Pain Mental Status Patient Orientation: Normal For Age Transfers Functional [place] Measure 0=Not Assessed/NA 4=Minimal Assistance 1=Total Assistance 5=Supervision or Setup 2=Maximal Assistance 6=Modified [place] 3=Moderate Assistance 7=Complete IndependenceIRFPAI Quality Coding Scale 6 Independent with activity with or without an assistive device 5 Patient requires set up or clean up by helper. Patient completes activity by themselves 4 Supervision or touching assist (CGA). [place] provide cues , steadying assist 3 The helper provides less than half the effort to complete the activity 2 The helper provides more than half the effort to complete the activity 1 Dependent. The helper does all the effort to complete an activity 7 Patient refused to complete or attempt activity 9 The patient did not perform the activity before the current illness or injury 88 Not attempted due to Medical conditions or safety concerns Transfers (B, C, W/C) (FIM): 6 sup to sit and sit to stand all mod I Gait Training Gait (FIM): 6 Gait Assistive Device: FWW 400ft CGA to SBA no LOB Exercises Standing: Hip Abduction, Heel/toe raises, Marching, Mini squats Standing Reps: 12 Assessment Current Status: Good Progress PT Ground Support Agent Goals Mcc Goals PT Mcc Goals Time Frame: May 06, 2017 Transfers (B,C,W/C) (FIM): 7 Gait (FIM): 7 Gait distance (FIM): 3=150 ft Gait Level of Assist: 7 Gait Assistive Device: None, FWW PT Plan Treatment/Plan Treatment Plan: Continue Plan of Care Treatment Plan: Education, Functional Activity Rodrigo, Functional Strength, Gait , Safety, Therapeutic Exercise, Transfers Treatment Duration: May 06, 2017 Frequency: 5 times per week Estimated Hrs Per Day: .25 hour per day Patient and/or Family Agrees t: Yes Safety Risks/Education Patient Education: Gait Training, Correct Positioning, Safety Issues Teaching Recipient: Patient Teaching Methods: Demonstration, Discussion Response to Teaching: Verbalize Understanding, Return Demonstration Time/GCodes Time In: 910 Time Out: 930 Total Billed Treatment Time: 20 Total Billed Treatment 1,GT20m G Codes Necessary: No ROLANDO BEST FLARE MAN May 02, 2017 10:05
[2017-05-02] MEDS: lisINopril 10 MG (PRINIVIL) TAB PO SCH (10:48)
[2017-05-02] MEDS ORDERED: LISI10TA2 PO (13:07)
[2017-05-02] MEDS ORDERED: DEXA4TAB PO (13:07)
--- NOTE | 2017-05-02 13:13 | Discharge Inst-Simple/Standard ---
Discharge Inst-Standard Discharge Medications New, Converted or Re-Newed RX: Transmitted to Pharmacy Patient Instructions/Follow Up Plan of Care/Instructions/FU: Continue daily radiation as scheduled. F/u at the cancer center on 05/12/2017 at 1300 hrs. Activity as Tolerated: Yes Discharge Diet: No Restrictions KATHLEEN BAEZ May 02, 2017 13:13
--- NOTE | 2017-05-05 07:20 | DISCHARGE SUMMARY ---
DATE OF ADMISSION 04/27/2017 DATE OF DISCHARGE: 05/02/2017 FINAL DIAGNOSES: 1. Mental status change due to number two. 2. Solitary brain metastasis in the left frontal lobe with edema and midline shift. 3. History of non-small cell lung cancer, status post combined chemoradiation. BRIEF HISTORY AND HOSPITAL COURSE: Mr. Membreno is a 61-year-old male with history of poorly differentiated non-small cell lung cancer who completed definitive chemoradiation in late February 2017. He was scheduled to start adjuvant chemotherapy but was brought to the emergency room by his historian dramatic arts on 04/27/2017 with increasing confusion. As part of the work-up the patient had a CT scan of the head which showed solitary large left frontal lobe enhancing mass consistent with metastasis with surrounding edema and midline shift. He was started on steroids with dexamethasone 10 mg IV bolus followed by 4 mg IV every 6 hours and admitted to the hospital for further management. Radiation oncology consultation was obtained with Dr. Maicol Hopper, who evaluated the patient and simulated for palliative whole brain radiation therapy. With continued dexamethasone use his confusion gradually cleared. The IV dexamethasone was changed over to oral route with food and he tolerated this well. Evaluation was obtained with physical therapy for balance issues and for strengthening and ambulation. He did not have any problems with balance and he was ambulating well without any assistance. The patient was noted to be hyponatremic at the time of evaluation at the emergency room on admission and was started on normal saline, which corrected the hyponatremia fairly quickly. The normal saline was weaned and discontinued over the first 48 to 72 hours. Because of the steroid use and the saline, his blood pressure was running about normal on admission and his antihypertensive medication dose was increased to Lisinopril 10 mg daily from 5 mg daily. This controlled his blood pressure well. He continued daily radiation and on 05/02/2017 was felt stable enough to be discharged home with his historian dramatic arts. Prior to this, social media content manager were consulted for discharge planning and she was in contact with the patient's historian dramatic arts who felt confident that he will be able to take care of the patient at home. Hence, he is being discharged home with the following instructions and medications: He will be on dexamethasone 4 mg 3 times a day with food. He will continue omeprazole 20 mg daily. The Albuterol DuoNeb inhalers as previously. Continue on Lisinopril 10 mg daily. He was instructed to continue daily radiation therapy at the [facility] as scheduled. He will have an office visit on 05/12/2016 at 1300 hours with Leanne Aguilar APRN. Prior to that we will manage weaning and dexamethasone during his radiation therapy. If he is having any new or unusual symptoms prior to follow-up, he was instructed to contact us. Job ID: [id number] Dictated Date: 05/02/2017 13:21:17 Air Turning Machine Feeder Date: 05/05/2017 07:09:27/cheng
== END 2017-05-02 14:34 | disposition home or self-care (01) | DRG 55 ==
LOC: EDUNIT# 21:13 → ER 21:15 → 4TH 23:00
PROVIDERS: ADMIT Internal Medicine Hematology & Oncology; ATTEND Internal Medicine Hematology & Oncology
DX: C79.31 Secondary malignant neoplasm of brain (principal); R41.82 Altered mental status, unspecified; C34.90 Malignant neoplasm of unspecified part of unspecified bronchus or lung; E87.1 Hypo-osmolality and hyponatremia; K21.9 Gastro-esophageal reflux disease without esophagitis; I10 Essential (primary) hypertension; J44.9 Chronic obstructive pulmonary disease, unspecified; K59.00 Constipation, unspecified; Z92.3 Personal history of irradiation; Z92.21 Personal history of antineoplastic chemotherapy; Z87.891 Personal history of nicotine dependence; Z80.0 Family history of malignant neoplasm of digestive organs
CPT/HCPCS: 36415; 70450; 71020; 77290; 77295; 77300; 77334; 77417; 77470; 80048; 80053; 80306; 80320; 81000; 82140; 82150; 83690; 83735; 84439; 84443; 84484; 85007; 85025; 85027; 85610; 85730; 93005; 93041; 96361; 96374; 99214

== ENCOUNTER 2017-05-04 10:22 | Observation (INO) | payer OTHER ==
[~2017-05-04] VITALS: Ht 162.6 cm; Wt 39.9 kg
[~2017-05-04 10:22] MED LIST changes: +BECL8.7A6 INH; +DEXA4TAB PO; +LISI10TA2 PO; +OMEP20CA12 PO
[2017-05-04 11:04] LABS: BASOPHILS % (AUTO) 0 % (0-10); EOSINOPHILS % (AUTO) 0 % (0-10); LYMPHOCYTES # (AUTO) 0.7 X 10^3 (1.0-4.0); LYMPHOCYTES % (AUTO) 4 % (12-44); MEAN CORPUSCULAR HEMOGLOBIN 33 PG (25-34); MEAN CORPUSCULAR HGB CONC 35 G/DL (32-36); MEAN CORPUSCULAR VOLUME 95 FL (80-99); MEAN PLATELET VOLUME 8.8 FL (7.4-10.4); MONOCYTES # (AUTO) 1.8 X 10^3 (0.0-1.0); MONOCYTES % (AUTO) 11 % (0-12); NEUTROPHILS # (AUTO) 14.3 X 10^3 (1.8-7.8); NEUTROPHILS % (AUTO) 85 % (42-75); PLATELET COUNT 359 10^3/uL (130-400); RED BLOOD COUNT 4.01 10^6/uL (4.35-5.85); RED CELL DISTRIBUTION WIDTH 16.3 % (10.0-14.5); WHITE BLOOD COUNT 16.8 10^3/uL (4.3-11.0)
[2017-05-04 11:22] LABS: BAND NEUTROPHILS 5 %; LYMPHOCYTES % (MANUAL) 2 %; NEUTROPHILS % (MANUAL) 83 %
[2017-05-04 11:27] LABS: ALANINE AMINOTRANSFERASE 13 U/L (0-55); ALBUMIN 3.8 GM/DL (3.2-4.5); ANION GAP 13 MMOL/L (5-14); ASPARTATE AMINO TRANSFERASE 13 U/L (5-34); BILIRUBIN,TOTAL 0.5 MG/DL (0.1-1.0); BLOOD UREA NITROGEN 22 MG/DL (7-18); BUN/CREATININE RATIO 23; CALCIUM 9.3 MG/DL (8.5-10.1); CARBON DIOXIDE 22 MMOL/L (21-32); CHLORIDE 99 MMOL/L (98-107); CREATININE SERUM 0.96 MG/DL (0.60-1.30); GFR ESTIMATED > 60; GLUCOSE 105 MG/DL (70-105); POTASSIUM 4.2 MMOL/L (3.6-5.0); SODIUM 134 MMOL/L (135-145); TOTAL PROTEIN 6.6 GM/DL (6.4-8.2)
--- NOTE | 2017-05-04 13:08 | ED General ---
General Chief Complaint: Altered Mental Status Stated Complaint: NOT RESPONSIVE;CANCER Nursing Triage Note: PT FRIEND REPORTS PT HAS HAD INCREASED CONFUSION AND WEAKNESS THIS AM. PT FRIEND REPORTS PT HAS BRAIN CA AND HAS HAD PREVIOUS EPISODES OF CONFUSION BUT IT SEEMS TO BE GETTING WORSE. Nursing Sepsis Screen: No Definite Risk Source of Information: Patient Exam Limitations: No Limitations (7. 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 He received and completed radiation in February of this year. He returned last week and was here from 04/27 through and was found to have a large solitary metastasis to the brain. He was then started on radiation therapy and was to have been taking 4 mg of Decadron by mouth every 8 hours at home. He was brought here by a friend today. The friend has left. The patient answered every question I asked him no although quite pleasantly. I discussed this with Dr. Sheikh by phone at 1308. We will admit the patient and give him IV Decadron and make other arrangements. Timing/Duration: Other Allergies and Home Medications Allergies Coded Allergies: Penicillins (Verified Allergy, Intermediate, ITCHING/SWELLING, 12/16/16) aspirin (Verified Allergy, Intermediate, ITCHING/SWELLING, 12/16/16) Home Medications Albuterol Sulfate 1 Puff Puff, 2 PUFF IH Q4H PRN for SHORTNESS OF BREATH, ( Reported) 1 PUFF = 90 MCG Beclomethasone Dipropionate 8.7 Gm Aer.w.adap, 1 PUFF INH BID PRN for SHORTNESS OF BREATH, (Reported) Dexamethasone 4 Mg Tablet, 4 MG PO Q8H, #50 Ref 0 Prescribed by: KATHLEEN SHEIKH on 05/02/17 1307 Lisinopril 10 Mg Tablet, 10 MG PO DAILY, #30 Ref 0 Prescribed by: KATHLEEN SHEIKH on 05/02/17 1307 Omeprazole 20 Mg Capsule.dr, 20 MG PO DAILY, (Reported) Constitutional: no symptoms reported Past Gacnxpk-Qilvvk-Oabjzt Hx Patient Social History Alcohol Use: Denies Use Recreational Drug Use: No Type Used: Cigarettes Recent Foreign Travel: No Contact w/Someone Who Travel: No Recent Infectious Disease Expo: No Recent Hopitalizations: No Immunizations Up To Date Tetanus Booster (TDap): Unknown PED Vaccines UTD: No Seasonal Allergies Seasonal Allergies: No Surgeries HX Surgeries: Yes (Bronchoscopy with biopsy 12/18/16) Surgeries: Tonsillectomy Respiratory Hx Respiratory Disorders: Yes (LUNG MASS/CANCER) Respiratory Disorders: Asthma, COPD Cardiovascular Hx Cardiac Disorders: Yes Cardiac Disorders: Hypertension Neurological Hx Neurological Disorders: No Reproductive System Hx Reproductive Disorders: No Sexually Transmitted Disease: No HIV/AIDS: No Genitourinary Hx Genitourinary Disorders: No Gastrointestinal Hx Gastrointestinal Disorders: Yes Gastrointestinal Disorders: Gastroesophageal Reflux Musculoskeletal Hx Musculoskeletal Disorders: Yes (FROM TUMOR) Musculoskeletal Disorders: Chronic Back Pain Endocrine Hx Endocrine Disorders: No HEENT HX ENT Disorders: Yes (GLASSES) Loss of Vision: Denies Hearing Impairment: Denies Cancer Hx Cancer: Yes (LUNG CANCER DX 12/2016--[place] WITH CHEMO AND RADIATION) Cancer: Lung Psychosocial Hx Psychiatric Problems: Yes (RELATED TO RECENT MEDICAL PROBLEMS) Behavioral Health Disorders: Anxiety Integumentary HX Skin/Integumentary Disorder: No Blood Transfusions Hx Blood Disorders: No Adverse Reaction to a Blood Tr: No Family Medical History Family Medial History: Patient reports no known family medical history. Physical Exam Vital Signs Vital Sign - Last 12Hours 05/04/17 10:44 Temp 97.7 Pulse 112 Resp 18 B/P (MAP) 128/76 Capillary Refill : Less Than 3 Seconds General Appearance: No Apparent Distress, WD/WN, Other (he is sitting up in bed. He does not know where he is. He answered every question no) Eyes: Bilateral Eye Normal Inspection HEENT: Normal ENT Inspection Neck: Normal Inspection Cardiovascular: Regular Rate, Rhythm, No Edema, No Gallop, No JVD, No Murmur, Normal Peripheral Pulses Gastrointestinal: Normal Bowel Sounds, No Organomegaly, No Pulsatile Mass, Non Tender, Soft Extremity: Normal Capillary Refill, Normal Inspection, Normal Range of Motion, Non Tender, No Calf Tenderness, No Pedal Edema Neurologic/Psychiatric: Alert, No Motor/Sensory Deficits Skin: Normal Color, Warm/Dry Lymphatic: No Adenopathy Progress/Results/Core Measures Results/Orders Lab Results Laboratory Tests Test 05/04/17 10:55 Range/Units White Blood Count 16.8 H 4.3-11.0 10^3/uL Red Blood Count 4.01 L 4.35-5.85 10^6/uL Hemoglobin 13.3 13.3-17.7 G/DL Hematocrit 38 L 40-54 % Mean Corpuscular Volume 95 80-99 FL Mean Corpuscular Hemoglobin 33 25-34 PG Mean Corpuscular Hemoglobin Concent 35 32-36 G/DL Red Cell Distribution Width 16.3 H 10.0-14.5 % Platelet Count 359 130-400 10^3/uL Mean Platelet Volume 8.8 7.4-10.4 FL Neutrophils (%) (Auto) 85 H 42-75 % Lymphocytes (%) (Auto) 4 L 12-44 % Monocytes (%) (Auto) 11 0-12 % Eosinophils (%) (Auto) 0 0-10 % Basophils (%) (Auto) 0 0-10 % Neutrophils # (Auto) 14.3 H 1.8-7.8 X 10^3 Lymphocytes # (Auto) 0.7 L 1.0-4.0 X 10^3 Monocytes # (Auto) 1.8 H 0.0-1.0 X 10^3 Eosinophils # (Auto) 0.0 0.0-0.3 10^3/uL Basophils # (Auto) 0.0 0.0-0.1 10^3/uL Neutrophils % (Manual) 83 % Lymphocytes % (Manual) 2 % Monocytes % (Manual) 10 % Band Neutrophils 5 % Dohle Bodies SLIGHT Blood Morphology Comment NORMAL Sodium Level 134 L 135-145 MMOL/L Potassium Level 4.2 3.6-5.0 MMOL/L Chloride Level 99 98-107 MMOL/L Carbon Dioxide Level 22 21-32 MMOL/L Anion Gap 13 5-14 MMOL/L Blood Urea Nitrogen 22 H 7-18 MG/DL Creatinine 0.96 0.60-1.30 MG/DL Estimat Glomerular Filtration Rate > 60 BUN/Creatinine Ratio 23 Glucose Level 105 70-105 MG/DL Calcium Level 9.3 8.5-10.1 MG/DL Total Bilirubin 0.5 0.1-1.0 MG/DL Aspartate Amino Transf (AST/SGOT) 13 5-34 U/L Alanine Aminotransferase (ALT/SGPT) 13 0-55 U/L Alkaline Phosphatase 73 40-136 U/L Total Protein 6.6 6.4-8.2 GM/DL Albumin 3.8 3.2-4.5 GM/DL My Orders Orders - ERIN CORREA MD Cbc With Automated Diff (05/04/17 10:27) Comprehensive Metabolic Panel (05/04/17 10:27) Ua Culture If Indicated (05/04/17 10:27) Manual Differential (05/04/17 10:55) Vital Signs/I&O Vital Sign - Last 12Hours 05/04/17 10:44 Temp 97.7 Pulse 112 Resp 18 B/P (MAP) 128/76 Blood Pressure Mean: 93 Departure Impression Impression: Primary Impression: adenocarcinoma of the lung with brain metastasis Disposition: ADMITTED INPATIENT Condition: Stable/Unchanged Departure-Patient Inst. Referrals: NO,LOCAL PHYSICIAN (PCP/Family) Primary Care Physician ERIN CORREA MD May 04, 2017 13:08
[2017-05-04] MEDS ORDERED: DEXAMETHASONE 4 MG/ML SDV (DECADRON) IV ONE (13:15)
[2017-05-04] MEDS: NS IV 1000 ML 1,000 ML IV SCH ×2 (13:21→16:07)
[2017-05-04 13:30] LABS: BILIRUBIN,URINE NEGATIVE (NEGATIVE); KETONES,URINE NEGATIVE (NEGATIVE); LEUKOCYTE ESTERASE ,URINE NEGATIVE (NEGATIVE); NITRITE,URINE NEGATIVE (NEGATIVE); PH,URINE 7 (5-9); PROTEIN,URINE NEGATIVE (NEGATIVE); UROBILINOGEN,URINE NORMAL (NORMAL)
[2017-05-04] MEDS: DEXAMETHASONE 4 MG TAB (DECADRON) PO SCH ×2 (16:07→21:34)
[2017-05-04 16:54] VITALS: BP 120/73
[2017-05-04 20:02] VITALS: BP 142/80
[2017-05-05] VITALS (7 sets, daily range): BP systolic 115–172; BP diastolic 65–86
[2017-05-05] MEDS: NS IV 1000 ML 1,000 ML IV SCH ×5 (02:17→21:53)
[2017-05-05] MEDS: DEXAMETHASONE 4 MG TAB (DECADRON) PO SCH ×4 (03:11→21:53)
[2017-05-05] MEDS ORDERED: RT-ALBUTEROL SULF 2.5 MG/3 ML PRE-MIX VIAL IH PRN (12:45)
[2017-05-05] MEDS ORDERED: POLYETHYLENE GLYCOL 17 GM (MIRALAX) PACK PO NR (12:45)
--- NOTE | 2017-05-05 14:04 | Occ Therapy Progress Note ---
Therapy Progress Note Order received for OT eval and treat. Chart review completed. Attempted evaluation [id number]. Pt in bed finishing lunch. Pt declined all therapy at this time stating he feels fine and "I just don't think I need it." Pt requests to rest at this time. Will follow up 05/06/17. 1, visit AYDEE LEGER OT May 05, 2017 14:04
--- NOTE | 2017-05-05 17:05 | Progress Note-Standard ---
Standard Progress Note Progress Notes/Assess & Plan Date Seen by Provider: May 05, 2017 Time Seen by Provider: 12:30 Progress/Assessment & Plan Mr. Membreno is a 61-year-old male with history of non-small cell lung cancer who was diagnosed with a solitary left frontal lobe metastasis causing edema and mental status changes approximately 10 days ago. He was admitted to the hospital at that time and started on palliative radiation therapy. She was also on dexamethasone to reduce the cerebral edema. He was doing well last Friday and wanted to be discharged home. information services vice president had discussed this with his friend who felt confident of taking care of him at home. He was brought back to the emergency room by his friend yesterday as he could not take care of him at home. Patient continues to have intermittent periods of lucidity and confusion. He denied any falls at home. Appetite is low but he is eating fairly. He has been admitted to observation status. I have consult administrator social welfare for other discharge options. His sister Jen from [place] have contacted the hospital and I have talked to her by phone regarding his condition. Patient has made his friend the medical power of disability attorney according to administrator social welfare. He is continuing daily radiation therapy. I will obtain a swing bed evaluation for continuation of radiation therapy. We will also consult PT and OT for strengthening and ambulation. His overall prognosis is guarded. KATHLEEN BAEZ May 05, 2017 5:05 pm
[2017-05-06 03:30] VITALS: BP 163/79
[2017-05-06] MEDS: DEXAMETHASONE 4 MG TAB (DECADRON) PO SCH ×5 (03:31→22:58)
[2017-05-06 07:48] VITALS: BP 154/79
[2017-05-06] MEDS: NS IV 1000 ML 1,000 ML IV SCH (07:56)
[2017-05-06] MEDS: PANTOPRAZOLE 20 MG TABLET (PROTONIX) PO SCH (09:19)
[2017-05-06] MEDS: lisINopril 10 MG (PRINIVIL) TAB PO SCH (09:19)
[2017-05-06 12:00] VITALS: BP 144/71
--- NOTE | 2017-05-06 14:25 | Occupational Therapy Eval ---
OT Evaluation-General/PLF Medical Diagnosis Admission Date May 04, 2017 at 13:17 Medical Diagnosis: Decreased Mental status Onset Date: May 04, 2017 Therapy Diagnosis Therapy Diagnosis: Weakness Height/Weight Height (Feet): 5 Height (Inches): 4.00 Weight (Pounds): 93 Weight (Ounces): 0.0 Precautions Precautions/Isolations: Fall Prevention, Standard Precautions Safety Interventions: Bed Exit Alarm Referral Physician: Dr. Post Referral Reason: Activity Tolerance, Self Care, Evaluation/Treatment, Strengthening/ROM Medical History Pertinent Medical History: COPD, GERD, HTN Additional Medical History Adenocarcinoma of lung with brain mets, lung mass, asthma COPD, chronic back pain, anxiety. Current History Pt. lives with friend. States that he is [facility]. Insistent that he is going today. However, notes state that he is going when radiation is complete. Reviewed History: Yes Social History Home: Single Level Current Living Status: Friend Entry Into Home: Level Entry ADL-Prior Level of Function ADL PLOF Comments Pt. states that he was independent with most things. States that he lives with a friend that helps him. Demonstrated difficulty telling OT information, other than he was going to [facility]. States that other than this, he "does not know the plan." DME/Equipment Comments Pt. states that he has been using a walker to get around with, but does not state any other equipment that he has. OT Current Status Subjective Pt. states that he does not have pain. Demonstrates flat affect. Appearance Pt. in bed. Nurse tech states that pt. has already had shower. Agrees to work with OT. Mental Status/Objective Patient Orientation: Unable to Assess Pt. demonstrates flat affect. Is unable to recount what his plan is fully. Current Glasses/Contacts: Yes Upper Extremity ROM WFL Upper Extremity Strength Pt. demonstrates 3+/5 bilateral UE strength. ADL-Treatment Functional [place] Measure 0=Not Assessed/NA 4=Minimal Assistance 1=Total Assistance 5=Supervision or Setup 2=Maximal Assistance 6=Modified [place] 3=Moderate Assistance 7=Complete IndependenceIRFPAI Quality Coding Scale 6 Independent with activity with or without an assistive device 5 Patient requires set up or clean up by helper. Patient completes activity by themselves 4 Supervision or touching assist (CGA). [place] provide cues , steadying assist 3 The helper provides less than half the effort to complete the activity 2 The helper provides more than half the effort to complete the activity 1 Dependent. The helper does all the effort to complete an activity 7 Patient refused to complete or attempt activity 9 The patient did not perform the activity before the current illness or injury 88 Not attempted due to Medical conditions or safety concerns Lower Body Dressing (FIM): 5 (SBA to doff/don socks in bed.) Transfers (B, C, W/C) (FIM): 5 (SBA to transfer supine-sit and sit-stand. SBA to transfer back to bed.) Pt. states that he has already cleaned up. Nursing states that pt. has already showered. Pt. made comfortable back in bed. Education OT Patient Education: Correct positioning, Purpose of tx/functional activities , Reviewed precautions, Rehab process, Transfer techniques Teaching Recipient: Patient Teaching Methods: Demonstration, Discussion Response to Teaching: Verbalize Understanding, Return Demonstration OT Short Term Goals Short Term Goals 1=Demonstrate adherence to instructed precautions during ADL tasks. 2=Patient will verbalize/demonstrate understanding of assistive devices/ modifications for ADL. 3=Patient will improve strength/tolerance for activity to enable patient to perform ADL's. OT Fpc Goals Top Frame Maker Goals Time Frame: May 13, 2017 Eating (FIM): 6 Grooming(FIM): 6 Bathing(FIM): 5 Upper Body Dressing(FIM): 5 Lower Body Dressing(FIM): 8 Toileting(FIM): 5 Toilet/Commode Transfer(FIM): 5 Shower Transfer(FIM): 5 Additional Goals: 1-Demonstrate ADL Tasks, 2-Verbalize Understanding, 3- ImproveStrength/Rodrigo 1=Demonstrate adherence to instructed precautions during ADL tasks. 2=Patient will verbalize/demonstrate understanding of assistive devices/ modifications for ADL. 3=Patient will improve strength/tolerance for activity to enable patient to perform ADL's. OT Education/Plan Problem List/Assessment Assessment: Decreased Activ Tolerance, Dependent Transfers, Impaired I ADL's, Impaired Self-Care Skills Discharge Recommendations Plan/Recommendations: Continue POC Therapy D/C Recommendations: 24 hr Supervision Target Placement Pt. states that he is discharging to a [facility]. Treatment Plan/Plan of Care Treatment,Training & Education: Yes Patient would benefit from OT for education, treatment and training to promote independence in ADL's, mobility, safety and/or upper extremity function for ADL' s. Plan of Care: ADL Retraining, Functional Mobility, UE Funct Exercise/Act Treatment Duration: May 13, 2017 Frequency: Daily Estimated Hrs Per Day: .5 hour per day Agreement: Yes Rehab Potential: Fair Time/GCodes Start Time: 11:45 Stop Time: 11:55 Total Time Billed (hr/min): 10 Billed Treatment Time 1, visit 0815 pt. going to x-ray 1, EVM [id number] Selfcur-CJ Armaangoal-CAROL ANN SCHULZ OT May 06, 2017 14:25
[2017-05-06 15:20] VITALS: BP 159/96
--- NOTE | 2017-05-06 18:51 | Progress Note-Standard ---
Standard Progress Note Progress Notes/Assess & Plan Date Seen by Provider: May 06, 2017 Time Seen by Provider: 18:47 Progress/Assessment & Plan Mr. Membreno is a 61-year-old male with history of non-small cell lung cancer who was diagnosed with a solitary left frontal lobe metastasis causing edema and mental status changes approximately 10 days ago. He was admitted to the hospital at that time and started on palliative radiation therapy. He was also on dexamethasone to reduce the cerebral edema. He was doing well last Friday and wanted to be discharged home. manager financial services had discussed this with his friend who felt confident of taking care of him at home. He was brought back to the emergency room by his friend on Friday as he could not take care of him at home. Patient continues to have intermittent periods of lucidity and confusion. Patient is unable to take care of himself because of the confusion and weakness. He does not have any other family in [place]. His sister from [place] has been in contact with him by phone. Appetite is low but he is eating fairly. He has been admitted to observation status. I have consult social science professor for other discharge options. He is continuing daily radiation therapy. Swing bed evaluation for continuation of radiation therapy, PT and OT is ongoing. OT has been working with the patient daily. His overall prognosis is guarded. KATHLEEN BAEZ May 06, 2017 18:51
[2017-05-06] MEDS: RT-FLUTICASONE 110 MCG (FLOVENT) PER PUFF INH SCH (18:59)
[2017-05-06 19:30] VITALS: BP 165/91
[2017-05-07] VITALS: BP 131/85
[2017-05-07] MEDS: DEXAMETHASONE 4 MG TAB (DECADRON) PO SCH ×4 (04:29→21:57)
[2017-05-07] MEDS: PANTOPRAZOLE 20 MG TABLET (PROTONIX) PO SCH (06:07)
[2017-05-07 08:00] VITALS: BP 188/74
[2017-05-07] MEDS: RT-FLUTICASONE 110 MCG (FLOVENT) PER PUFF INH SCH ×2 (08:03→21:44)
[2017-05-07] MEDS: lisINopril 10 MG (PRINIVIL) TAB PO SCH (08:57)
[2017-05-07 10:55] LABS: BILIRUBIN,URINE NEGATIVE (NEGATIVE); KETONES,URINE NEGATIVE (NEGATIVE); LEUKOCYTE ESTERASE ,URINE NEGATIVE (NEGATIVE); NITRITE,URINE NEGATIVE (NEGATIVE); PH,URINE 7 (5-9); PROTEIN,URINE NEGATIVE (NEGATIVE); UROBILINOGEN,URINE NORMAL (NORMAL)
[2017-05-07 11:22] LABS: SQUAMOUS EPITHELIAL CELL,UR RARE /HPF
[2017-05-07 12:00] VITALS: BP 159/87
--- NOTE | 2017-05-07 14:29 | Occupational Ther Daily Note ---
OT Current Status-Daily Note Subjective Pt in bed, agrees to treatment. Pt denies pain at this time. Mental Status/Objective Functional [place] Measure 0=Not Assessed/NA 4=Minimal Assistance 1=Total Assistance 5=Supervision or Setup 2=Maximal Assistance 6=Modified [place] 3=Moderate Assistance 7=Complete [place] ADL-Treatment Pt declined bathing or dressing, states he showered yesterday. Pt agreed to grooming tasks. Supine to sit with SBA. Pt donned slippers with set up. Sit to stand with supervision. Gait to restroom with [facility]. Pt stood at sink for grooming tasks. Pt completed oral care and washed face with SBA. Pt returned to bed with needs met after session. Grooming (FIM): 5 OT Short Term Goals Short Term Goals 1=Demonstrate adherence to instructed precautions during ADL tasks. 2=Patient will verbalize/demonstrate understanding of assistive devices/ modifications for ADL. 3=Patient will improve strength/tolerance for activity to enable patient to perform ADL's. OT Supervisor [employer] Goals Custodial Goals Time Frame: May 13, 2017 Eating (FIM): 6 Grooming(FIM): 6 Bathing(FIM): 5 Upper Body Dressing(FIM): 5 Lower Body Dressing(FIM): 8 Toileting(FIM): 5 Toilet/Commode Transfer(FIM): 5 Shower Transfer(FIM): 5 Additional Goals: 1-Demonstrate ADL Tasks, 2-Verbalize Understanding, 3- ImproveStrength/Rodrigo 1=Demonstrate adherence to instructed precautions during ADL tasks. 2=Patient will verbalize/demonstrate understanding of assistive devices/ modifications for ADL. 3=Patient will improve strength/tolerance for activity to enable patient to perform ADL's. OT Education/Plan Discharge Recommendations Plan/Recommendations: Continue POC Treatment Plan/Plan of Care Patient would benefit from OT for education, treatment and training to promote independence in ADL's, mobility, safety and/or upper extremity function for ADL' s. Plan of Care: ADL Retraining, Functional Mobility, UE Funct Exercise/Act Treatment Duration: May 13, 2017 Frequency: Daily Estimated Hrs Per Day: .5 hour per day Agreement: Yes Rehab Potential: Fair Time/GCodes Start Time: 10:40 Stop Time: 10:54 Total Time Billed (hr/min): 14 Billed Treatment Time 1 visit, ADL(14minutes) AYDEE LEGER OT May 07, 2017 14:29
--- NOTE | 2017-05-07 15:10 | Physical Therapy Evaluation ---
PT Evaluation-General Medical Diagnosis Admission Date May 04, 2017 at 13:17 Medical Diagnosis: Decreased Mental status Onset Date: May 04, 2017 Therapy Diagnosis Therapy Diagnosis: weaknee Height/Weight Height (Feet): 5 Height (Inches): 4.00 Weight (Pounds): 88 Weight (Ounces): 0.7 Precautions Precautions/Isolations: Fall Prevention, Standard Precautions Referral Physician: Dr. Post Reason for Referral: Evaluation/Treatment Medical History Pertinent Medical History: COPD, GERD, HTN Additional Medical History Lung CA with mets to the bone. Current History Pt admitted with a decline in mental status Reviewed History: Yes Social History Home: Single Level Current Living Status: Friend Entry Into Home: Level Entry Prior/Core FIM Prior Level of Function Functional [place] Measure 0=Not Assessed/NA 4=Minimal Assistance 1=Total Assistance 5=Supervision or Setup 2=Maximal Assistance 6=Modified [place] 3=Moderate Assistance 7=Complete [place] Pt was primarily independent with mobility using a FWW as needed. PT Evaluation-Current Subjective Agrees to PT. Reports he feels a little better. Pain Numeric Pain Scale: 0-No Pain Location: No Pain Reported Objective Patient Orientation: Person, Place, Time, Situation Problem Solving: Fair ROM/Strength ROM Lower Extremities WFL very flexible and able to sit cross legged in bed. Strenght Lower Extremities WFL for transfers and gait. Integumentary/Posture Bowel Incontinence: No Bladder Incontinence: No Posture normal and symmetrical Sensory Vision: Wears Glasses Hearing: Functional Hand Dominance: Right Sensation Right Lower Extremit: Intact Sensation Left Lower Extremity: Intact Transfers Functional [place] Measure 0=Not Assessed/NA 4=Minimal Assistance 1=Total Assistance 5=Supervision or Setup 2=Maximal Assistance 6=Modified [place] 3=Moderate Assistance 7=Complete [place] Transfers (B, C, W/C) (FIM): 5 SBA with all transfers. Gait Mode of Locomotion: Walk Anticipated Mode of Locomotion: Walk Gait (FIM): 4 Distance (FIM): 3=150 ft Distance: 200 ft Gait Assistive Device: FWW Comments/Gait Description CGA for safety; slightly unsteady; both feet in ER with heels almost touching. Balance Sitting Static: Normal Sitting Dynamic: Normal Standing Static: Fair Standing Dynamic: Fair Assessment/Needs Pt presents with decreased functional activity tolerance and decreased safety with gait as it is unsteady in nature. He will benefit from skilled PT intervention to work on functional strength and mobility to allow him to return home safely and mobilize without assist. EVal of moderate intensity due to lung CA, mets to the bone, COPD; Decreased ability to transfer, ambulate and altered balance; evolving as he is currently receiving treatment for his CA. Rehab Potential: Fair PT Senior Care Goals Activity Director Goals PT Activity Director Goals Time Frame: May 16, 2017 Transfers (B,C,W/C) (FIM): 7 Gait (FIM): 6 Gait distance (FIM): 3=150 ft Gait Assistive Device: FWW PT Plan Problem List Problem List: Activity Tolerance, Functional Strength, Safety, Balance, Gait, Transfer, Bed Mobility Treatment/Plan Treatment Plan: Continue Plan of Care Treatment Plan: Bed Mobility, Education, Functional Activity Rodrigo, Functional Strength, Gait, Therapeutic Exercise, Transfers Treatment Duration: May 16, 2017 Frequency: 5 times per week Estimated Hrs Per Day: .25 hour per day Patient and/or Family Agrees t: Yes Safety Risks/Education Patient Education: Transfer Techniques, Safety Issues Teaching Recipient: Patient Teaching Methods: Demonstration, Discussion Response to Teaching: Reinforcement Needed Time/GCodes Time In: 1435 Time Out: 1455 Total Billed Treatment Time: 20 Total Billed Treatment visit EVM 20 G Codes Necessary: Yes PT/OT Therapy GCodes Therapy Functional Limitation: Physical Therapy Test(s)/Tool used to determine: Level of Assistance Scale Functional Limitation-Current Charge Code: MOBCUR Modifier: CJ Functional Limitation-Goal Charge Code: MOBGOAL Modifier: PENELOPE MONDRAGON PT May 07, 2017 15:10
[2017-05-07 15:32] VITALS: BP 152/89
[2017-05-07] MEDS ORDERED: ACETAMINOPHEN 325 MG TABLET/CAPLET (TYLENOL) ONE (16:45)
[2017-05-07] MEDS: ACETAMINOPHEN 325 MG TABLET/CAPLET (TYLENOL) PO PRN (16:54)
--- NOTE | 2017-05-07 19:06 | Progress Note-Standard ---
Standard Progress Note Progress Notes/Assess & Plan Date Seen by Provider: May 07, 2017 Time Seen by Provider: 18:57 Progress/Assessment & Plan Mr. Membreno is a 61-year-old male with history of non-small cell lung cancer who was diagnosed with a solitary left frontal lobe metastasis causing edema and mental status changes recently. He was admitted to the hospital at that time and started on palliative radiation therapy. He was also on dexamethasone to reduce the cerebral edema. He was doing well last Friday and wanted to be discharged home. cargo and ramp services manager had discussed this with his friend who felt confident of taking care of him at home. He was brought back to the emergency room by his friend on Friday as he could not take care of him at home. Patient continues to have intermittent periods of lucidity and confusion. He is weaker and incontinent of urine. Physical therapy evaluation noted and PT as well as OT is working with the patient for strengthening and ambulation. Patient is unable to take care of himself because of the confusion and weakness. Appetite is low but he is eating fairly. He it is continuing on observation status. I have consult case management social worker for other discharge options. He is continuing daily radiation therapy. Today I will decrease the dexamethasone to 4 mg by mouth every 8 hours. Swing bed evaluation for continuation of radiation therapy, PT and OT is ongoing. Vital Sign - Last 12Hours Date Time Temp Pulse Resp B/P (MAP) Pulse Ox O2 Delivery O2 Flow Rate FiO2 05/07/17 15:32 98.6 88 20 152/89 97 Room Air Physical examination showed an elderly male, thin and weak appearing, awake and answering simple questions but having difficulty remembering details, flat affect, otherwise in no acute distress. Oral mucosa moist without lesions. Lungs fairly clear to auscultation without wheezes or rales. Cardio vascular exam was regular in rate and rhythm. No murmurs or gallops heard. Abdomen was soft, nontender with no hepatosplenomegaly or other masses palpable. Extremities showed no edema. Neurological examination showed no focal motor deficits. Overall motor strength was 4 over 5 bilaterally. A/P: 1. Solitary brain metastasis in the left frontal lobe with edema, currently on dexamethasone and daily radiation therapy. I will decrease the dexamethasone to 4 mg every 8 hours. 2. Non-small cell lung cancer, status post definitive chemoradiation completed approximately 2 months ago. 3. Mental status changes and generalized weakness due to number 1. Continue PT and OT. 4. cargo and ramp services manager trying to coordinate discharge planning. Patient is unable to take care of himself at this point. KATHLEEN BAEZ May 07, 2017 19:06
[2017-05-07 19:46] VITALS: BP 167/86
[2017-05-08] VITALS: BP 151/93
[2017-05-08] MEDS: DEXAMETHASONE 4 MG TAB (DECADRON) PO SCH (03:30)
[2017-05-08] MEDS: PANTOPRAZOLE 20 MG TABLET (PROTONIX) PO SCH (06:24)
[2017-05-08] MEDS: RT-FLUTICASONE 110 MCG (FLOVENT) PER PUFF INH SCH (08:39)
[2017-05-08 08:42] VITALS: BP 132/88
[2017-05-08] MEDS: lisINopril 10 MG (PRINIVIL) TAB PO SCH (08:59)
[2017-05-08] MEDS: ACETAMINOPHEN 325 MG TABLET/CAPLET (TYLENOL) PO PRN (09:00)
--- NOTE | 2017-05-08 10:15 | Physical Therapy Daily Note ---
PT Daily Note-Current Subjective Agrees to PT. No complaints. Transfers Functional [place] Measure 0=Not Assessed/NA 4=Minimal Assistance 1=Total Assistance 5=Supervision or Setup 2=Maximal Assistance 6=Modified [place] 3=Moderate Assistance 7=Complete IndependenceIRFPAI Quality Coding Scale 6 Independent with activity with or without an assistive device 5 Patient requires set up or clean up by helper. Patient completes activity by themselves 4 Supervision or touching assist (CGA). [place] provide cues , steadying assist 3 The helper provides less than half the effort to complete the activity 2 The helper provides more than half the effort to complete the activity 1 Dependent. The helper does all the effort to complete an activity 7 Patient refused to complete or attempt activity 9 The patient did not perform the activity before the current illness or injury 88 Not attempted due to Medical conditions or safety concerns Treatments Pt is able to get in/out of bed wt supervision assist only. No cues or physical assist necessary. Pt ambulated x 300 ft with FWW with SBA. Pt in bed post treatment with needs met. Assessment Current Status: Good Progress Tolerating well. Benefits from regular mobility to promote cardiovascular benefits and LE strength. PT Usp Goals Coiled Tubing Operator Goals PT Coiled Tubing Operator Goals Time Frame: May 16, 2017 Transfers (B,C,W/C) (FIM): 7 Gait (FIM): 6 Gait distance (FIM): 3=150 ft Gait Assistive Device: FWW PT Plan Problem List Problem List: Activity Tolerance, Functional Strength, Safety Treatment/Plan Treatment Plan: Continue Plan of Care Treatment Plan: Bed Mobility, Education, Functional Activity Rodrigo, Functional Strength, Gait, Therapeutic Exercise, Transfers Treatment Duration: May 16, 2017 Frequency: 5 times per week Estimated Hrs Per Day: .25 hour per day Patient and/or Family Agrees t: Yes Time/GCodes Time In: 950 Time Out: 1006 Total Billed Treatment Time: 16 Total Billed Treatment visit GT 16 PT/OT Therapy GCodes Therapy Functional Limitation: Physical Therapy Test(s)/Tool used to determine: Level of Assistance Scale Functional Limitation-Current Charge Code: MOBCUR Modifier: CJ Functional Limitation-Goal Charge Code: MOBGOAL Modifier: PENELOPE MONDRAGON PT May 08, 2017 10:15
[2017-05-08] MEDS ORDERED: DEXAMETHASONE 4 MG TAB (DECADRON) PO SCH ×2 (11:00→14:00)
--- NOTE | 2017-05-08 11:23 | Occupational Ther Daily Note ---
OT Current Status-Daily Note Subjective Pt in bed, agrees to treatment. Mental Status/Objective Functional [place] Measure 0=Not Assessed/NA 4=Minimal Assistance 1=Total Assistance 5=Supervision or Setup 2=Maximal Assistance 6=Modified [place] 3=Moderate Assistance 7=Complete [place] ADL-Treatment Pt initially states he would like to shower this morning, but then changes his mind and would like to sponge bathe. Pt supine to sit with modified independence. Sit to stand with supervision. Gait to restroom with FWW. Sponge bath completed at sink after set up. Pt donned hospital gown with assist to tie in the back. Pt brushed teeth with set up while seated at sink. Pt returned to EOB with SBA and cues for safety. Pt resting in bed with needs met after session. Grooming (FIM): 5 Bathing (FIM): 5 (set up for sponge bath) OT Short Term Goals Short Term Goals 1=Demonstrate adherence to instructed precautions during ADL tasks. 2=Patient will verbalize/demonstrate understanding of assistive devices/ modifications for ADL. 3=Patient will improve strength/tolerance for activity to enable patient to perform ADL's. OT Long-Term Goals Long-Term Goals Time Frame: May 13, 2017 Eating (FIM): 6 Grooming(FIM): 6 Bathing(FIM): 5 Upper Body Dressing(FIM): 5 Lower Body Dressing(FIM): 8 Toileting(FIM): 5 Toilet/Commode Transfer(FIM): 5 Shower Transfer(FIM): 5 Additional Goals: 1-Demonstrate ADL Tasks, 2-Verbalize Understanding, 3- ImproveStrength/Rodrigo 1=Demonstrate adherence to instructed precautions during ADL tasks. 2=Patient will verbalize/demonstrate understanding of assistive devices/ modifications for ADL. 3=Patient will improve strength/tolerance for activity to enable patient to perform ADL's. OT Education/Plan Discharge Recommendations Plan/Recommendations: Continue POC Treatment Plan/Plan of Care Patient would benefit from OT for education, treatment and training to promote independence in ADL's, mobility, safety and/or upper extremity function for ADL' s. Plan of Care: ADL Retraining, Functional Mobility, UE Funct Exercise/Act Treatment Duration: May 13, 2017 Frequency: Daily Estimated Hrs Per Day: .5 hour per day Agreement: Yes Rehab Potential: Fair Time/GCodes Start Time: 10:11 Stop Time: 10:29 Total Time Billed (hr/min): 18 Billed Treatment Time 1 visit, ADL(18minutes) PT/OT Therapy GCodes Therapy Functional Limitation: Physical Therapy Test(s)/Tool used to determine: Level of Assistance Scale Functional Limitation-Current Charge Code: MOBCUR Modifier: CJ Functional Limitation-Goal Charge Code: MOBGOAL Modifier: AYDEE ANDRADE OT May 08, 2017 11:23
--- NOTE | 2017-05-09 11:26 | DISCHARGE SUMMARY ---
DISCHARGE/TRANSFER SUMMARY: DATE OF TRANSFER TO SWING BED STATUS: 05/08/2017 The patient is admitted to Room 420. Mr. Membreno is a 61-year-old male with recent diagnosis of left frontal lobe solitary metastasis causing mental status changes and cerebral edema. He was on dexamethasone to reduce the cerebral edema and palliative radiation therapy. He was discharged home with his friend last week as he was felt to be stable. His friend was unable to take care of him at home and the patient himself could not take care of him and he was brought back to the emergency room and admitted to observation status on Friday. He has been approved to stay in the hospital on swing bed status to continue radiation therapy and physical therapy and is being transferred to the swing bed status today. The patient still has periods of confusion and lucidity. He is extremely weak and has some balance problems. He is unable to ambulate significant distances on his own. He is working with physical therapy and occupational therapy for strengthening and ADLs as well as ambulation. He is on dexamethasone 4 mg every 8 hours at this time and continuing daily radiation therapy. director of career services has been following the patient and working on discharge plans when he is stable. He does not have any family in [place] and some of his family members scheduled to go come to [facility] this weekend. He is scheduled to finish his whole brain radiation therapy next week. Once the radiation therapy is done and he is stronger and more stable, we will consider discharge either to home with help or to a ch[facility]. His dexamethasone also needs to be weaned as the radiation is finishing. He is being transferred to swing bed status today with the following medications and instructions. 1. Dexamethasone 4 mg p.o. every 8 hours. 2. Protonix 40 mg p.o. daily. 3. Albuterol nebulizer as needed. 4. Flovent 1 puff twice daily. 5. Lisinopril 10 mg p.o. daily. 6. Tylenol on a p.r.n. basis. [facility] after the end of the radiation therapy. He is to continue physical and occupational therapy at the hospital as instructed. DIET: As tolerated. Job ID: [id number] Dictated Date: 05/08/2017 17:34:15 Manufacturing Mechanic Date: 05/09/2017 11:10:44/tbcheri
== END 2017-05-08 10:40 | disposition swing bed (61) ==
LOC: EDUNIT# 10:22 → ER 10:24 → UNDOADMOB 13:17 → 4TH 13:17 → OBSVTOIN 14:05 → INTOOBSV 14:05 → UNDODISIN 05-08 13:04 → UNDODISOB 05-08 13:04
PROVIDERS: ADMIT Internal Medicine Hematology & Oncology; ATTEND Internal Medicine Hematology & Oncology
DX: C34.90 Malignant neoplasm of unspecified part of unspecified bronchus or lung (principal); C79.31 Secondary malignant neoplasm of brain; R53.83 Other fatigue; R41.0 Disorientation, unspecified; J44.9 Chronic obstructive pulmonary disease, unspecified; I10 Essential (primary) hypertension; Z79.899 Other long term (current) drug therapy
CPT/HCPCS: 36415; 77336; 80053; 81000; 85007; 85027; 94640; 94760; 96361; 96374; G0378

== ENCOUNTER 2017-05-08 10:24 | Inpatient (IN) | payer OTHER ==
[~2017-05-08] VITALS: Ht 162.6 cm; Wt 39.9 kg
[2017-05-08 12:00] VITALS: BP 148/78
[2017-05-08] MEDS ORDERED: ACETAMINOPHEN 325 MG TABLET/CAPLET (TYLENOL) PO PRN (13:15)
[2017-05-08] MEDS ORDERED: RT-ALBUTEROL SULF 2.5 MG/3 ML PRE-MIX VIAL IH PRN (13:15)
[2017-05-08] MEDS ORDERED: DEXAMETHASONE 4 MG TAB (DECADRON) PO SCH (13:15)
[2017-05-08] MEDS ORDERED: POLYETHYLENE GLYCOL 17 GM (MIRALAX) PACK PO NR (14:00)
[2017-05-08] MEDS: DEXAMETHASONE 4 MG TAB (DECADRON) PO SCH ×2 (14:48→22:13)
[2017-05-08 18:55] VITALS: BP 125/78
[2017-05-08] MEDS: RT-FLUTICASONE 110 MCG (FLOVENT) PER PUFF INH SCH (19:37)
[2017-05-09 05:15] VITALS: BP 120/81
[2017-05-09] MEDS: PANTOPRAZOLE 20 MG TABLET (PROTONIX) PO SCH (05:25)
[2017-05-09] MEDS: DEXAMETHASONE 4 MG TAB (DECADRON) PO SCH ×3 (05:25→21:00)
[2017-05-09] MEDS: RT-FLUTICASONE 110 MCG (FLOVENT) PER PUFF INH SCH ×2 (09:05→19:16)
[2017-05-09] MEDS: lisINopril 10 MG (PRINIVIL) TAB PO SCH (09:54)
[2017-05-09] MEDS ORDERED: DOCUSATE SODIUM 100 MG (COLACE) CAP PO PRN (13:45)
--- NOTE | 2017-05-09 15:07 | Physical Therapy Progress Note ---
Therapy Progress Note Attempted to perform swing bed eval twice this afternoon but patient refused both times. The first time, OT was finishing up with him and he stated that he didn't think he would be able to participate after that, therapist told him he would come back later and try again. The second time, patient was asleep in bed, after waking patient refused to participate stating that he was just too tired. PT will try back tomorrow. ROBER DUGGAN PT May 09, 2017 15:07
--- NOTE | 2017-05-09 16:00 | Progress Note (SOAP) ---
Subjective Date Seen by Provider: May 09, 2017 Time Seen by Provider: 12:20 Subjective/Events-last exam Mr. Membreno is a 61-year-old male with history of stage IIIA poorly differentiated non-small cell lung cancer and had completed combined chemotherapy and radiation on 03/11/2017. He was starting adjuvant chemotherapy for 2 additional months. His friend brought him to the emergency room on 04/27/2017 because of increasing confusion. The patient underwent a work -up which showed evidence of metastatic disease of the left frontal lobe with surrounding vasogenic edema. He was also noted to be hyponatremic. He was started on steroids and admitted to the hospital for appropriate management. He was stabilized and discharged to home to complete radiation as an out patient. His friend was unable to care for him and patient was readmitted to receive radiation this inpatient. He has now been transferred to swing bed to complete radiation and to receive PT because of weakness and wobbly gait. Objective Exam Vital Signs Date Time Temp Pulse Resp B/P (MAP) Pulse Ox O2 Delivery O2 Flow Rate FiO2 05/09/17 09:06 99 Room Air 05/09/17 05:15 97.7 91 20 120/81 98 Room Air 05/08/17 21:00 100 Room Air 05/08/17 19:41 100 Room Air 05/08/17 18:55 97.8 98 24 125/78 100 Room Air 05/08/17 16:17 97 Room Air I & O 05/09/17 07:00 Intake Total 3080 ml Output Total 2150 ml Balance 930 ml Capillary Refill : General Appearance: No Apparent Distress HEENT: PERRL/EOMI Neck: Full Range of Motion Respiratory: Chest Non Tender, Lungs Clear Cardiovascular: Regular Rate, Rhythm Gastrointestinal: normal bowel sounds, non tender, soft Extremity: Non Tender, No Calf Tenderness Neurologic/Psychiatric: Alert Assessment/Plan Assessment/Plan Assess & Plan/Chief Complaint 1. Altered Mental Status secondary to brain met; 2. Secondary Brain metastases-receiving radiation therapy 3. History of Stage III poorly differentiated carcinoma status post chemotherapy and radiation completed 03/11/17 4. COPD 5. Hypertension 6. GERD 7. Former heavy cigarette smoker/history of tobaccoism quit 2015. Clinical Quality Measures DVT/VTE Risk/Contraindication: Risk Factor Score Per Nursin RFS Level Per Nursing on Admit: 4+=Very High THADDEUS COLLADO MD May 09, 2017 16:00
--- NOTE | 2017-05-09 16:27 | Occupational Therapy Eval ---
OT Evaluation-General/PLF Medical Diagnosis Admission Date May 08, 2017 at 13:17 Medical Diagnosis: decreased mental status Onset Date: May 04, 2017 Therapy Diagnosis Therapy Diagnosis: weakness, decr self care, decr funct mobility Height/Weight Height (Feet): 5 Height (Inches): 4.00 Weight (Pounds): 88 Weight (Ounces): 0.7 Precautions Precautions/Isolations: Standard Precautions Safety Interventions: Bed Exit Alarm Referral Physician: speedy Referral Reason: Evaluation/Treatment Medical History Pertinent Medical History: COPD, GERD, HTN Additional Medical History Adenocarcinoma of lung, with brain mets, lung mass, asthma, COPD, chronic back pain, anxiety Current History Friend brought him to ED due to decreased mental status and he was unable to care for him. has done chemo and radiation. Pt anticipates [facility] to [facility] on Friday, after completing radiation tx. Reviewed History: Yes Social History Home: Single Level Current Living Status: Friend Entry Into Home: Level Entry ADL-Prior Level of Function ADL PLOF Comments Pt stated that he was independent with most ADLs but he doesn't do cooking, cleaning, laundry. He works as a loan interviewer mortgage and still drives. DME/Equipment Comments Pt said he has none of these devices at home OT Current Status Subjective Pt seen in room, up in bed, agreeable to OT. Pt rated pain 3/10 and said he had a headache. Appearance Alert, cooperative but very angry and irritated with phone calls in his room. Otherwise flat affect Mental Status/Objective Attachments: Saline Lock Current Glasses/Contacts: Yes Hearing Aids: No Dentures/Partials: No Hand Dominance: Right Upper Extremity ROM Grossly WFL bilat. R seems to lag behind L at times Upper Extremity Strength grossly 3+/5 bilat ADL-Treatment Functional [place] Measure 0=Not Assessed/NA 4=Minimal Assistance 1=Total Assistance 5=Supervision or Setup 2=Maximal Assistance 6=Modified [place] 3=Moderate Assistance 7=Complete IndependenceIRFPAI Quality Coding Scale 6 Independent with activity with or without an assistive device 5 Patient requires set up or clean up by helper. Patient completes activity by themselves 4 Supervision or touching assist (CGA). [place] provide cues , steadying assist 3 The helper provides less than half the effort to complete the activity 2 The helper provides more than half the effort to complete the activity 1 Dependent. The helper does all the effort to complete an activity 7 Patient refused to complete or attempt activity 9 The patient did not perform the activity before the current illness or injury 88 Not attempted due to Medical conditions or safety concerns Eating (FIM): 6 (Pt reported that he does not have a problem eating or getting a drink. He was observed to get a drink from mug) Eating (QC): 6 Grooming (FIM): 5 (SBA standing at sink, with FWW, to brush teeth and wash face and hands. A little wobbly but no LOB) Oral Hygiene (QC): 4 (supervision) Toileting (FIM): 0 (Pt refuses, stating, "I don't do that. I'm incontinent". Pt said he does not use Depends) Toileting Hygiene (QC): 7 (Pt refuses, stating, "I don't do that. I'm incontinent". Pt said he does not use Depends) Transfers (B, C, W/C) (FIM): 5 (SBA supine to sit and sit to stand from EOB, FWW) Toilet/Commode Transfer (FIM): 0 (Pt refuses, stating, "I don't do that. I'm incontinent". Pt said he does not use Depends) Toilet Transfer (QC): 7 (Pt refuses, stating, "I don't do that. I'm incontinent ". Pt said he does not use Depends) OT followed up with nursing who said pt does use a urinal but that he may be spilling it. They could not confirm a BM at that time. Pt walked to and from bathroom with FWW and SBA for safety due to unsteadiness, needing some skilled cues for walker placement at sink. Pt left up in bed, all needs met. Education OT Patient Education: Purpose of tx/functional activities, Rehab process, Safety issues, Transfer techniques Teaching Recipient: Patient Teaching Methods: Discussion Response to Teaching: Verbalize Understanding, Reinforcement Needed OT Fci Goals Fci Goals Time Frame: May 16, 2017 Eating (FIM): 6 Eating (QC): 6 Groomin Oral Hygiene (QC): 6 Bathing(FIM): 6 Upper Body Dressing(FIM): 6 Lower Body Dressing(FIM): 6 Toileting(FIM): 6 Toileting Hygiene (QC): 6 Toilet/Commode Transfer(FIM): 6 Toilet/Commode Transfer (QC): 6 Shower Transfer(FIM): 6 Additional Goals: 2-Verbalize Understanding, 3-ImproveStrength/Rodrigo 1=Demonstrate adherence to instructed precautions during ADL tasks. 2=Patient will verbalize/demonstrate understanding of assistive devices/ modifications for ADL. 3=Patient will improve strength/tolerance for activity to enable patient to perform ADL's. OT Education/Plan Problem List/Assessment Assessment: Decreased Safety Aware, Decreased UE Strength, Impaired Self-Care Skills Pt would benefit from skilled OT to increase his independence in basic self care and to decrease caregiver burden Discharge Recommendations Plan/Recommendations: Continue POC Therapy D/C Recommendations: Residential (TCU/NH) (Skilled OT) Treatment Plan/Plan of Care Treatment,Training & Education: Yes Patient would benefit from OT for education, treatment and training to promote independence in ADL's, mobility, safety and/or upper extremity function for ADL' s. Plan of Care: ADL Retraining, Functional Mobility, UE Funct Exercise/Act, UE Neuromus Re-Ed/Coord Treatment Duration: May 16, 2017 Frequency: Daily (5-6 times a week) Estimated Hrs Per Day: .5 hour per day Agreement: Yes Rehab Potential: Fair Time/GCodes Start Time: 13:40 Stop Time: 14:00 Total Time Billed (hr/min): 20 Billed Treatment Time visit, evaluation low intensity 20 minutes RICKI ODOM OT May 09, 2017 16:27
[2017-05-09 18:00] VITALS: BP 123/83
[2017-05-10 04:37] LABS: BASOPHILS % (AUTO) 0 % (0-10); EOSINOPHILS % (AUTO) 0 % (0-10); LYMPHOCYTES # (AUTO) 0.3 X 10^3 (1.0-4.0); LYMPHOCYTES % (AUTO) 1 % (12-44); MEAN CORPUSCULAR HEMOGLOBIN 33 PG (25-34); MEAN CORPUSCULAR HGB CONC 35 G/DL (32-36); MEAN CORPUSCULAR VOLUME 95 FL (80-99); MEAN PLATELET VOLUME 9.8 FL (7.4-10.4); MONOCYTES # (AUTO) 1.5 X 10^3 (0.0-1.0); MONOCYTES % (AUTO) 6 % (0-12); NEUTROPHILS # (AUTO) 24.7 X 10^3 (1.8-7.8); NEUTROPHILS % (AUTO) 93 % (42-75); PLATELET COUNT 339 10^3/uL (130-400); RED BLOOD COUNT 4.27 10^6/uL (4.35-5.85); RED CELL DISTRIBUTION WIDTH 16.3 % (10.0-14.5); WHITE BLOOD COUNT 26.6 10^3/uL (4.3-11.0)
[2017-05-10 04:53] LABS: ANION GAP 14 MMOL/L (5-14); BLOOD UREA NITROGEN 29 MG/DL (7-18); BUN/CREATININE RATIO 30; CALCIUM 8.9 MG/DL (8.5-10.1); CARBON DIOXIDE 19 MMOL/L (21-32); CHLORIDE 97 MMOL/L (98-107); CREATININE SERUM 0.96 MG/DL (0.60-1.30); GFR ESTIMATED > 60; GLUCOSE 143 MG/DL (70-105); POTASSIUM 4.8 MMOL/L (3.6-5.0); SODIUM 130 MMOL/L (135-145)
[2017-05-10] MEDS: PANTOPRAZOLE 20 MG TABLET (PROTONIX) PO SCH (06:05)
[2017-05-10] MEDS: DEXAMETHASONE 4 MG TAB (DECADRON) PO SCH ×3 (06:05→22:42)
[2017-05-10 06:15] VITALS: BP 115/78
[2017-05-10] MEDS: RT-FLUTICASONE 110 MCG (FLOVENT) PER PUFF INH SCH ×2 (07:15→19:56)
[2017-05-10 08:04] VITALS: BP 115/64
--- NOTE | 2017-05-10 09:09 | Occ Therapy Progress Note ---
Therapy Progress Note Attempted OT treatment at 0800. Pt resting in bed, reports chest pain/pressure rated 2/10. RN notified. Checked back with RN at 0900, states pt is having testing ordered by physician. Will hold therapy at this time and attempt treatment on 05/12/17. RN in agreement. 1, visit AYDEE LEGER OT May 10, 2017 09:09
[2017-05-10] MEDS: lisINopril 10 MG (PRINIVIL) TAB PO SCH (10:40)
[2017-05-10] MEDS: POLYETHYLENE GLYCOL 17 GM (MIRALAX) PACK PO SCH (10:48)
--- NOTE | 2017-05-10 11:43 | Physical Therapy Evaluation ---
PT Evaluation-General Medical Diagnosis Admission Date May 08, 2017 at 13:17 Medical Diagnosis: decreased mental status Onset Date: May 04, 2017 Therapy Diagnosis Therapy Diagnosis: decreased mobility Height/Weight Height (Feet): 5 Height (Inches): 4.00 Weight (Pounds): 88 Weight (Ounces): 0.7 Precautions Precautions/Isolations: Standard Precautions Referral Physician: speedy Reason for Referral: Evaluation/Treatment Medical History Pertinent Medical History: COPD, GERD, HTN Current History Pt. 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 Reviewed History: Yes Social History Home: Single Level Current Living Status: Friend Entry Into Home: Level Entry Prior/Core FIM Prior Level of Function Functional [place] Measure 0=Not Assessed/NA 4=Minimal Assistance 1=Total Assistance 5=Supervision or Setup 2=Maximal Assistance 6=Modified [place] 3=Moderate Assistance 7=Complete [place] Bed Mobility: 7 Transfers (B,C,W/C) (FIM): 7 Gait: 7 PT Evaluation-Current Subjective Pt. in bed, agrees to therapy on 2nd attempt. Pain Numeric Pain Scale: 2 Location Body Site: Chest Pt/Family Goals home with friend Objective Patient Orientation: Person, Place, Time, Situation ROM/Strength ROM Upper Extremities WFL ROM Lower Extremities WFL Strength Upper Extremities WFL Strenght Lower Extremities Grossly 4/5 (B) Integumentary/Posture Integumentary grossly intact Neuromuscular (Tone, Coordination, Reflexes) unremarkable Sensory Vision: Wears Glasses Hand Dominance: Right Sensation Right Upper Extremit: Intact Sensation Left Upper Extremity: Intact Sensation Right Lower Extremit: Intact Sensation Left Lower Extremity: Intact Transfers Functional [place] Measure 0=Not Assessed/NA 4=Minimal Assistance 1=Total Assistance 5=Supervision or Setup 2=Maximal Assistance 6=Modified [place] 3=Moderate Assistance 7=Complete [place] Transfers (B, C, W/C) (FIM): 5 Supine to/from Sit: 6 Sit to/from Stand: 5 Sit to Lying (QC): 6 Lying to Sitting/Side of Bed(Q: 6 Sit to Stand (QC): 5 Chair/Aiw-fu-Roqrb Xfer(QC): 7 Gait Does the Patient Walk?: Yes Mode of Locomotion: Walk Anticipated Mode of Locomotion: Walk Gait (FIM): 4 Distance (FIM): 3=150 ft Distance: 350 ft Walk 50 ft with 2 Turns(QC): 4 Walk 150 ft (QC): 4 Gait Persons Needed: 1 Gait Assistive Device: FWW Balance Sitting Static: Good Sitting Dynamic: Good Standing Static: Good Standing Dynamic: Fair Assessment/Needs Pt. presents with general decrease in mobility and would benefit from short term skilled PT to restore prior level of function to return home safely. Rehab Potential: Good PT Metal Cabinet Finisher Goals Metal Cabinet Finisher Goals PT Metal Cabinet Finisher Goals Time Frame: May 23, 2017 Transfers (B,C,W/C) (FIM): 7 Sit to Lying (QC): 6 Lying-Sitting on Side/Bed(QC): 6 Sit to Stand (QC): 6 Chair/Upd-ek-Nqxnb Xfer(QC): 6 Does the Patient Walk: Yes Gait (FIM): 6 Gait distance (FIM): 3=150 ft Distance: 300 ft Walk 50ft with 2 Turns (QC): 6 Walk 150 ft (QC): 6 Gait Level of Assist: 6 Gait Assistive Device: FWW PT Plan Problem List Problem List: Activity Tolerance, Functional Strength, Safety, Balance, Gait, Transfer, Bed Mobility Treatment/Plan Treatment Plan: Continue Plan of Care Treatment Plan: Bed Mobility, Education, Functional Activity Rodrigo, Functional Strength, Gait, Safety, Therapeutic Exercise, Transfers Treatment Duration: May 23, 2017 Frequency: 6 times per week Estimated Hrs Per Day: .25 hour per day Patient and/or Family Agrees t: Yes Time/GCodes Time In: 1010 Time Out: 1033 Total Billed Treatment Time: 23 Total Billed Treatment 1, EVL 8', GT 15' ISABELL MONTEIRO PT May 10, 2017 11:43
--- NOTE | 2017-05-10 11:48 | Consultation-Cardiology ---
HPI-Cardiology Cardiology Consultation: Date of Consultation 05/10/17 Time Seen by Provider: 11:15 Date of Admission Attending Physician Kathleen Baez Admitting Physician No,Local Physician Consulting Physician ADINA PEPPER MD, MA, FACP, FACC, FSCAI, CCDS HPI: Chief Complaint: Chest discomfort HPI: 61 yo man admitted to Dr Anderson with lung CA metastatic to brain and associated with confusion. Had chest discomfort today. When I saw him, he cannot remember if he had chest discomfort. Thinks it was more of a head discomfort. Then recalls some epigastric discomfort that was mild, but cannot say how long it lasted and if it radiated or if it was associated with other symptoms. Cannot recall any prior such discomfort. Denies shortness of breath or palp or syncope or leg swelling Review of Systems-Cardiology Review of Systems Constitutional: lightheadedness, malaise, tiredness Eyes: No vision change Ears/Nose/Throat: No ear discharge, No nasal drainage, No recent hearing loss Respiratory: As described under HPI Cardiovascular: As described under HPI Gastrointestinal: No constipation, No diarrhea, No nausea, No vomiting Genitourinary: No dysuria, No hematuria, No urine frequency changes Skin: No rash, No ulcerations Psychiatric/Neurological: No focal weakness, No syncope Hematologic: No bleeding abnormalities NHS-Xaabwd-Vighjm Hx Patient Social History Alcohol Use: Denies Use Recreational Drug Use: No Type Used: Cigarettes Recent Foreign Travel: No Physical Abuse Screen: No Sexual Abuse: No Immunizations Up To Date Tetanus Booster (TDap): Unknown Past Medical History PMH As described under Assessment. Family Medical History Family Medical History: Reports a history of CAD in parents, but apparently not at an early age. Does not report any other significant fam history Allergies and Home Medications Allergies Coded Allergies: Penicillins (Verified Allergy, Intermediate, ITCHING/SWELLING, 12/16/16) aspirin (Verified Allergy, Intermediate, ITCHING/SWELLING, 12/16/16) Home Medications Albuterol Sulfate 1 Puff Puff, 2 PUFF IH Q4H PRN for SHORTNESS OF BREATH, ( Reported) 1 PUFF = 90 MCG Beclomethasone Dipropionate 8.7 Gm Aer.w.adap, 1 PUFF INH BID PRN for SHORTNESS OF BREATH, (Reported) Dexamethasone 4 Mg Tablet, 4 MG PO Q8H, #50 Ref 0 Prescribed by: KATHLEEN BAEZ on 05/02/17 1307 Lisinopril 10 Mg Tablet, 10 MG PO DAILY, #30 Ref 0 Prescribed by: KATHLEEN BAEZ on 05/02/17 1307 Omeprazole 20 Mg Capsule.dr, 20 MG PO DAILY, (Reported) Physical Exam-Cardiology Physical Exam Vital Signs/I&O Vital Sign - Last 12Hours 05/10/17 05/10/17 05/10/17 06:15 07:15 08:04 Temp 98.0 96.8 Pulse 94 88 Resp 16 20 B/P (MAP) 115/78 115/64 Pulse Ox 100 98 98 O2 Delivery Room Air Room Air Room Air Intake and Output 05/10/17 00:00 Intake Total 1240 ml Output Total 850 ml Balance 390 ml Capillary Refill : Constitutional: other (mildly confused; does not appear to be in any distress) HEENT: PERRL, EOMI, No xanthelasmas are seen Neck: carotid pulses are 2 + bilaterally Respiratory: No accessory muscle use, other (good bilat air entry) Cardiovascular: regular rate-rhythm, S1 and S2, systolic murmur (faint JAY at card base) Gastrointestinal: soft, No guarding, No rebound, audible bowel sounds Extremities: No clubbing, No cyanosis, No significant edema Neurologic/Psychiatric: other (confused), power is 5/5 both on sides Skin: No rash, No ulcerations Data Review Labs Laboratory Tests 05/10/17 04:01: White Blood Count 26.6H, Red Blood Count 4.27L, Hemoglobin 14.0, Hematocrit 40, Mean Corpuscular Volume 95, Mean Corpuscular Hemoglobin 33, Mean Corpuscular Hemoglobin Concent 35, Red Cell Distribution Width 16.3H, Platelet Count 339, Mean Platelet Volume 9.8, Neutrophils (%) (Auto) 93H, Lymphocytes (%) (Auto) 1L , Monocytes (%) (Auto) 6, Eosinophils (%) (Auto) 0, Basophils (%) (Auto) 0, Neutrophils # (Auto) 24.7H, Lymphocytes # (Auto) 0.3L, Monocytes # (Auto) 1.5H, Eosinophils # (Auto) 0.0, Basophils # (Auto) 0.0, Sodium Level 130L, Potassium Level 4.8, Chloride Level 97L, Carbon Dioxide Level 19L, Anion Gap 14, Blood Urea Nitrogen 29H, Creatinine 0.96, Estimat Glomerular Filtration Rate > 60, BUN /Creatinine Ratio 30, Glucose Level 143H, Calcium Level 8.9 05/10/17 08:46: Troponin I < 0.30 Laboratory Tests 05/10/17 04:01 A/P-Cardiology Assessment/Admission Diagnosis Chest discomfort of undetermined etiology. No evidence of ACS Cardiomyopathy: ischemic or due to chemo and radiation therapy for lung CA Echo of 05/10/17: LVEF 25-30%, inferolateral and anteroseptal akineses Altered Mental Status secondary to brain met; Secondary Brain metastases- receiving radiation therapy History of Stage III poorly differentiated carcinoma status post chemotherapy and radiation completed 03/11/17 COPD, by history Hypertension GERD, by history Former heavy cigarette smoker. He states he quit several years ago Discussion and Recomendations Complex management due to multiple comorbidities that are outlined above Conservative cardiac management appears best at this time Add beta-roxann and TIMOTHY-inhibitor to treat cardiomyopath Add aspirin for suspected CAD Clinical Quality Measures DVT/VTE Risk/Contraindication: Risk Factor Score Per Nursin RFS Level Per Nursing on Admit: 4+=Very High ADINA PEPPER MD FACP FAC CCDS May 10, 2017 11:48
[2017-05-10] MEDS ORDERED: CLOPIDOGREL 75 MG (PLAVIX) TABLET PO ONE (12:00)
--- NOTE | 2017-05-10 13:52 | Progress Note (SOAP) ---
Subjective Date Seen by Provider: May 10, 2017 Time Seen by Provider: 13:00 Subjective/Events-last exam Patient reported having chest pain this morning. He was seen by cardiology but did not have a clear recollection of having chest pain at the time being seen. At today's visit he mentions having chest pain yesterday and earlier today but non-at the time of the visit. Troponins were sent and is negative at less than 0.3. Echocardiogram has been done and shows low ejection fraction of 25-30 percent as well as akinetic segments mid anteroseptal and inferolateral wall. Objective Exam Vital Signs Date Time Temp Pulse Resp B/P (MAP) Pulse Ox O2 Delivery O2 Flow Rate FiO2 05/10/17 08:04 96.8 88 20 115/64 98 Room Air 05/10/17 07:15 98 Room Air 05/10/17 06:15 98.0 94 16 115/78 100 Room Air 05/09/17 19:17 97 Room Air 05/09/17 18:00 97.6 105 18 123/83 100 Room Air I & O 05/10/17 07:00 Intake Total 1440 ml Output Total 1100 ml Balance 340 ml Capillary Refill : General Appearance: No Apparent Distress, Chronically ill HEENT: PERRL/EOMI Neck: Non Tender, Supple Respiratory: Lungs Clear Cardiovascular: Regular Rate, Rhythm, No Edema, No JVD Gastrointestinal: normal bowel sounds, non tender, soft, no pulsatile mass Extremity: Non Tender, No Calf Tenderness Neurologic/Psychiatric: Alert, Depressed Affect Results Lab Laboratory Tests 05/10/17 04:01: White Blood Count 26.6H, Red Blood Count 4.27L, Hemoglobin 14.0, Hematocrit 40, Mean Corpuscular Volume 95, Mean Corpuscular Hemoglobin 33, Mean Corpuscular Hemoglobin Concent 35, Red Cell Distribution Width 16.3H, Platelet Count 339, Mean Platelet Volume 9.8, Neutrophils (%) (Auto) 93H, Lymphocytes (%) (Auto) 1L , Monocytes (%) (Auto) 6, Eosinophils (%) (Auto) 0, Basophils (%) (Auto) 0, Neutrophils # (Auto) 24.7H, Lymphocytes # (Auto) 0.3L, Monocytes # (Auto) 1.5H, Eosinophils # (Auto) 0.0, Basophils # (Auto) 0.0, Sodium Level 130L, Potassium Level 4.8, Chloride Level 97L, Carbon Dioxide Level 19L, Anion Gap 14, Blood Urea Nitrogen 29H, Creatinine 0.96, Estimat Glomerular Filtration Rate > 60, BUN /Creatinine Ratio 30, Glucose Level 143H, Calcium Level 8.9 05/10/17 08:46: Troponin I < 0.30 Laboratory Tests 05/10/17 04:01 Assessment/Plan Assessment/Plan Assess & Plan/Chief Complaint 1. Altered Mental Status secondary to brain met; 2. Cardiomyopathy with Recent Onset of Chest Pain--patient seen 05/10/[address] Zuleta, chuck boner who feels patient has no evidence of acute coronary syndrome. a. Dr. Zuleta's assistance is appreciated. b. Cardiomyopathy with low ejection fraction and mid anteroseptal and mid inferolateral akinetic segments/ wall motion abnormalities--Abnormal echocardiogram results noted. 3. Secondary Brain metastases-receiving radiation therapy 4. History of Stage III poorly differentiated carcinoma status post chemotherapy and radiation completed 03/11/17 5. COPD 6. Hypertension 7. GERD 8. Former heavy cigarette smoker/history of tobaccoism quit 2015. Clinical Quality Measures DVT/VTE Risk/Contraindication: Risk Factor Score Per Nursin RFS Level Per Nursing on Admit: 4+=Very High THADDEUS COLLADO MD May 10, 2017 13:52
[2017-05-10 17:13] VITALS: BP 106/65
[2017-05-11 06:00] VITALS: BP 112/75
[2017-05-11] MEDS: PANTOPRAZOLE 20 MG TABLET (PROTONIX) PO SCH (06:20)
[2017-05-11] MEDS: DEXAMETHASONE 4 MG TAB (DECADRON) PO SCH ×3 (06:20→21:06)
[2017-05-11] MEDS: RT-FLUTICASONE 110 MCG (FLOVENT) PER PUFF INH SCH ×2 (07:58→19:27)
[2017-05-11] MEDS: POLYETHYLENE GLYCOL 17 GM (MIRALAX) PACK PO SCH (09:25)
[2017-05-11] MEDS: lisINopril 10 MG (PRINIVIL) TAB PO SCH (09:25)
[2017-05-11] MEDS: CLOPIDOGREL 75 MG (PLAVIX) TABLET PO SCH (09:25)
--- NOTE | 2017-05-11 13:42 | Progress Note-Cardiology ---
Cardiology SOAP Progress Note Subjective: No cp or palp or syncope Feels better than yesterday Objective: I&O/Vital Signs Vital Sign - Last 12Hours 05/11/17 05/11/17 06:00 07:58 Temp 98.0 Pulse 82 Resp 20 B/P (MAP) 112/75 Pulse Ox 99 99 O2 Delivery Room Air Room Air Intake and Output 05/11/17 00:00 Intake Total 1480 ml Output Total 850 ml Balance 630 ml Weight (Pounds): 88 Weight (Ounces): 0.7 Weight (Calculated Kilograms): 39.770291 Constitutional: other (mildly confused; does not appear to be in any distress) Respiratory: No accessory muscle use, other (good bilat air entry) Cardiovascular: regular rate-rhythm, S1 and S2, systolic murmur (faint JAY at card base) Gastrointestional: soft, No guarding, No rebound, audible bowel sounds Extremities: No clubbing, No cyanosis, No significant edema Neurologic/Psychiatric: other (confused), power is 5/5 both on sides Skin: No rash, No ulcerations Results/Procedures: Labs Laboratory Tests 05/10/17 14:20: Troponin I < 0.30 A/P: Assessment: Chest discomfort of undetermined etiology. 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 He states he quit several years ago Plan: Continue current cardiac regimen I spoke with and his family and answered CV-related questions ADINA PEPPER MD FACP FAC CCDS May 11, 2017 13:42
[2017-05-11] MEDS ORDERED: BISACODYL 10 MG SUPP (DULCOLAX) PR PRN (14:30)
--- NOTE | 2017-05-11 14:48 | Progress Note (SOAP) ---
Subjective Date Seen by Provider: May 11, 2017 Time Seen by Provider: 13:20 Subjective/Events-last exam No new complaints; Denies both headache and chest pain; Objective Exam Vital Signs Date Time Temp Pulse Resp B/P (MAP) Pulse Ox O2 Delivery O2 Flow Rate FiO2 05/11/17 07:58 99 Room Air 05/11/17 06:00 98.0 82 20 112/75 99 Room Air 05/10/17 19:56 98 Room Air 05/10/17 17:13 99.1 86 20 106/65 98 Room Air I & O 05/11/17 07:00 Intake Total 1480 ml Output Total 1150 ml Balance 330 ml Capillary Refill : General Appearance: No Apparent Distress, Chronically ill HEENT: PERRL/EOMI Neck: Full Range of Motion, Non Tender, Supple Respiratory: Lungs Clear, Normal Breath Sounds Cardiovascular: Regular Rate, Rhythm, No Edema Gastrointestinal: normal bowel sounds, non tender, soft Extremity: Non Tender, No Calf Tenderness, No Pedal Edema Neurologic/Psychiatric: Alert, Oriented x3, No Motor/Sensory Deficits Results Lab Laboratory Tests 05/10/17 04:01 Assessment/Plan Assessment/Plan Assess & Plan/Chief Complaint 1. Altered Mental Status secondary to brain met; 2. Cardiomyopathy with Recent Onset of Chest Pain--patient seen 05/10/[address] Zuleta, lamp tester and inspector who feels patient has no evidence of acute coronary syndrome. a. Dr. Zuleta's assistance is appreciated. b. Cardiomyopathy with low ejection fraction and mid anteroseptal and mid inferolateral akinetic segments/ wall motion abnormalities--Abnormal echocardiogram results noted. 3. Secondary Brain metastases-receiving radiation therapy 4. 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 History of Stage III poorly differentiated carcinoma status post chemotherapy and radiation completed 03/11/17 6. COPD 7. Hypertension 8. GERD 9. Former heavy cigarette smoker/history of tobaccoism quit 2015. Clinical Quality Measures DVT/VTE Risk/Contraindication: Risk Factor Score Per Nursin RFS Level Per Nursing on Admit: 4+=Very High THADDEUS COLLADO MD May 11, 2017 14:48
[2017-05-11 18:32] VITALS: BP 134/76
[2017-05-12] MEDS: DEXAMETHASONE 4 MG TAB (DECADRON) PO SCH ×3 (05:30→20:40)
[2017-05-12] MEDS: PANTOPRAZOLE 20 MG TABLET (PROTONIX) PO SCH (05:30)
[2017-05-12 06:15] VITALS: BP 121/79
[2017-05-12] MEDS: RT-FLUTICASONE 110 MCG (FLOVENT) PER PUFF INH SCH ×2 (07:24→18:35)
--- NOTE | 2017-05-12 09:39 | Progress Note-Cardiology ---
Cardiology SOAP Progress Note Subjective: Drowsy, but awakens Does not report cp or palp or syncope or shortness of breath Objective: I&O/Vital Signs Vital Sign - Last 12Hours 05/12/17 05/12/17 05/12/17 06:15 07:25 08:00 Temp 97.8 Pulse 70 Resp 20 B/P (MAP) 121/79 Pulse Ox 100 96 O2 Delivery Room Air Room Air Room Air Intake and Output 05/12/17 00:00 Intake Total 1260 ml Output Total 575 ml Balance 685 ml Weight (Pounds): 88 Weight (Ounces): 0.7 Weight (Calculated Kilograms): 39.930809 Constitutional: other (mildly confused; does not appear to be in any distress) Respiratory: No accessory muscle use, other (good bilat air entry) Cardiovascular: regular rate-rhythm, S1 and S2, systolic murmur (faint JAY at card base) Gastrointestional: soft, No guarding, No rebound, audible bowel sounds Extremities: No clubbing, No cyanosis, No significant edema Neurologic/Psychiatric: other (confused), power is 5/5 both on sides Skin: No rash, No ulcerations A/P: Assessment: Chest discomfort of undetermined etiology. No evidence of ACS. 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 He states he quit several years ago Plan: Continue current cardiac regimen ADINA PEPPER MD FACP FAC CCDS May 12, 2017 09:39
[2017-05-12] MEDS: lisINopril 10 MG (PRINIVIL) TAB PO SCH (09:56)
[2017-05-12] MEDS: CLOPIDOGREL 75 MG (PLAVIX) TABLET PO SCH (09:56)
[2017-05-12] MEDS: POLYETHYLENE GLYCOL 17 GM (MIRALAX) PACK PO SCH (09:56)
--- NOTE | 2017-05-12 11:52 | Physical Therapy Daily Note ---
PT Daily Note-Current Subjective Patient is in bed and incontinent urine. Patient is also appears agitated. Pain Numeric Pain Scale: 0-No Pain Location: No Pain Reported Mental Status Patient Orientation: Confused Transfers Functional [place] Measure 0=Not Assessed/NA 4=Minimal Assistance 1=Total Assistance 5=Supervision or Setup 2=Maximal Assistance 6=Modified [place] 3=Moderate Assistance 7=Complete IndependenceIRFPAI Quality Coding Scale 6 Independent with activity with or without an assistive device 5 Patient requires set up or clean up by helper. Patient completes activity by themselves 4 Supervision or touching assist (CGA). [place] provide cues , steadying assist 3 The helper provides less than half the effort to complete the activity 2 The helper provides more than half the effort to complete the activity 1 Dependent. The helper does all the effort to complete an activity 7 Patient refused to complete or attempt activity 9 The patient did not perform the activity before the current illness or injury 88 Not attempted due to Medical conditions or safety concerns Transfers (B, C, W/C) (FIM): 5 Scootin Roll Left to Right (QC): 5 Supine to/from Sit: 5 Sit to/from Stand: 5 Sit to Lying (QC): 4 Sit to Stand (QC): 4 Chair/Hrp-wc-Cskjf Xfer(QC): 4 Bed to/from Chair: 4 Gait Training Gait (FIM): 5 Distance (FIM): 3=150 ft Distance: 400' x 1; 200' x 1 Walk 50 ft with 2 Turns(QC): 4 Walk 150 ft (QC): 4 Gait Level of Assist: 5 Gait Persons Needed: 1 Gait Assistive Device: FWW SBA with gait belt in place for safety Assessment Patient continues to appear agitated. He requires time to complete all functional tasks due to confusion. PT Rim Buster Goals Retirement Goals PT Retirement Goals Time Frame: May 23, 2017 Transfers (B,C,W/C) (FIM): 7 Sit to Lying (QC): 6 Lying-Sitting on Side/Bed(QC): 6 Sit to Stand (QC): 6 Chair/Qyp-qo-Bczrf Xfer(QC): 6 Does the Patient Walk: Yes Gait (FIM): 6 Gait distance (FIM): 3=150 ft Distance: 300 ft Walk 50ft with 2 Turns (QC): 6 Walk 150 ft (QC): 6 Gait Level of Assist: 6 Gait Assistive Device: FWW PT Plan Treatment/Plan Treatment Plan: Continue Plan of Care Treatment Plan: Bed Mobility, Education, Functional Activity Rodrigo, Functional Strength, Gait, Safety, Therapeutic Exercise, Transfers Treatment Duration: May 23, 2017 Frequency: 6 times per week Estimated Hrs Per Day: .25 hour per day Patient and/or Family Agrees t: Yes Time/GCodes Time In: 1040 Time Out: 1103 Total Billed Treatment Time: 23 Total Billed Treatment 1 visit FA x 2 23 min MONICA QUEVEDO PT May 12, 2017 11:52
--- NOTE | 2017-05-12 16:12 | Occupational Ther Daily Note ---
OT Current Status-Daily Note Subjective Pt seen inroom, up in bed, agreeable to OT. Pt mentioned that he had a "little headache" but did not rate it Appearance Alert, cooperative Mental Status/Objective Functional [place] Measure 0=Not Assessed/NA 4=Minimal Assistance 1=Total Assistance 5=Supervision or Setup 2=Maximal Assistance 6=Modified [place] 3=Moderate Assistance 7=Complete [place] ADL-Treatment Pt was a little shaky getting in and out of bed. Walked with CGA, FWW to bathroom, with skilled cues for hand placement and a little help steering FWW. He needed CGA to get on and off tall toilet and skilled cues for hand placement on grab bar and to not pull up from walker. He did not use the bathroom but was able to manage clothing with CGA. Once up, he was able to stand SBA, FWW at sink and brush his teeth, sequencing task correctly. He walked back to his bed with CGA, FWW and help steering walker. When he got to bed, he noticed the front of his gown was wet. He may have spilled urine on it when he was in bed because his urinal was spilled on his bedside table. Clean gown put on, pt up in bed, 4 rails up, all needs met. Functional [place] Measure 0=Not Assessed/NA 4=Minimal Assistance 1=Total Assistance 5=Supervision or Setup 2=Maximal Assistance 6=Modified [place] 3=Moderate Assistance 7=Complete IndependenceIRFPAI Quality Coding Scale 6 Independent with activity with or without an assistive device 5 Patient requires set up or clean up by helper. Patient completes activity by themselves 4 Supervision or touching assist (CGA). [place] provide cues , steadying assist 3 The helper provides less than half the effort to complete the activity 2 The helper provides more than half the effort to complete the activity 1 Dependent. The helper does all the effort to complete an activity 7 Patient refused to complete or attempt activity 9 The patient did not perform the activity before the current illness or injury 88 Not attempted due to Medical conditions or safety concerns Eating (FIM): 6 (Pt reported he is able to feed himself without difficulty) Eating (QC): 6 Grooming (FIM): 5 (SBA, FWW at sink) Oral Hygiene (QC): 4 (Supervision) Toileting (FIM): 4 (CGA) Toileting Hygiene (QC): 4 (CGA) Toilet/Commode Transfer (FIM): 4 (CGA) Toilet Transfer (QC): 4 (CGA) Education OT Patient Education: Progress toward Goal/Update tx plan, Safety issues, Transfer techniques Teaching Recipient: Patient Teaching Methods: Demonstration, Discussion Response to Teaching: Reinforcement Needed OT Short Term Goals Short Term Goals 1=Demonstrate adherence to instructed precautions during ADL tasks. 2=Patient will verbalize/demonstrate understanding of assistive devices/ modifications for ADL. 3=Patient will improve strength/tolerance for activity to enable patient to perform ADL's. OT Scrap Drop Operator Goals Usp Goals Time Frame: May 16, 2017 Eating (FIM): 6 Eating (QC): 6 Groomin Oral Hygiene (QC): 6 Bathing(FIM): 6 Upper Body Dressing(FIM): 6 Lower Body Dressing(FIM): 6 Toileting(FIM): 6 Toileting Hygiene (QC): 6 Toilet/Commode Transfer(FIM): 6 Toilet/Commode Transfer (QC): 6 Shower Transfer(FIM): 6 Additional Goals: 2-Verbalize Understanding, 3-ImproveStrength/Rodrigo 1=Demonstrate adherence to instructed precautions during ADL tasks. 2=Patient will verbalize/demonstrate understanding of assistive devices/ modifications for ADL. 3=Patient will improve strength/tolerance for activity to enable patient to perform ADL's. OT Education/Plan Problem List/Assessment Pt would benefit from skilled OT to increase his independence in basic self care and to decrease caregiver burden Discharge Recommendations Plan/Recommendations: Continue POC (february DC to [facility] tomorrow) Treatment Plan/Plan of Care Patient would benefit from OT for education, treatment and training to promote independence in ADL's, mobility, safety and/or upper extremity function for ADL' s. Plan of Care: ADL Retraining, Functional Mobility, UE Funct Exercise/Act, UE Neuromus Re-Ed/Coord Treatment Duration: May 16, 2017 Frequency: Daily (5-6 times a week) Estimated Hrs Per Day: .5 hour per day Agreement: Yes Rehab Potential: Good Time/GCodes Start Time: 15:35 Stop Time: 15:52 Total Time Billed (hr/min): 17 Billed Treatment Time visit, 17 minutes ADL RICKI ODOM OT May 12, 2017 16:12
[2017-05-12 17:04] VITALS: BP 108/59
--- NOTE | 2017-05-12 18:17 | Oncology Progress Note ---
Subjective Time Seen by Provider: 18:10 Subjective/Events-last exam Feeling good. Want to go home after radiation Data Review Labs Laboratory Tests 05/10/17 04:01: White Blood Count 26.6H, Red Blood Count 4.27L, Red Cell Distribution Width 16.3H, Neutrophils (%) (Auto) 93H, Lymphocytes (%) (Auto) 1L, Neutrophils # ( Auto) 24.7H, Lymphocytes # (Auto) 0.3L, Monocytes # (Auto) 1.5H, Sodium Level 130L, Chloride Level 97L, Carbon Dioxide Level 19L, Blood Urea Nitrogen 29H, Glucose Level 143H 05/10/17 08:46: 05/10/17 14:20: Physical Exam Vital Signs Vital Sign - Last 12Hours 05/08/17 12:00 Temp 97.6 Pulse 98 Resp 20 B/P (MAP) 148/78 Pulse Ox 100 O2 Delivery Room Air Capillary Refill : General Appearance: No Apparent Distress HEENT: PERRL/EOMI Respiratory: No Accessory Muscle Use, No Respiratory Distress Neurologic/Psychiatric: Alert, Oriented x3 Impression & Plan Impression & Plan Assess & Plan/Chief Complaint 1. Altered Mental Status secondary to brain met; improved since Decadron and radiation. 2. Cardiomyopathy with Recent Onset of Chest Pain--patient seen 05/10/[address] Zuleta, pain management specialist who feels patient has no evidence of acute coronary syndrome. a. Dr. Zuleta's assistance is appreciated. b. Cardiomyopathy with low ejection fraction and mid anteroseptal and mid inferolateral akinetic segments/ wall motion abnormalities--Abnormal echocardiogram results noted. 3. Secondary Brain metastases-receiving radiation therapy. One more dose to finish his treatment. Pt wants to go home afterward. Taper off Decadron 4. 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 History of Stage III poorly differentiated carcinoma status post chemotherapy and radiation completed 03/11/17 6. COPD 7. Hypertension 8. GERD 9. Former heavy cigarette smoker/history of tobaccoism quit 2015. 10. Leukocytosis 2nd to steroid. Clinical Quality Measures DVT/VTE Risk/Contraindication: Risk Factor Score Per Nursin RFS Level Per Nursing on Admit: 4+=Very High KINJAL HODGE MD May 12, 2017 18:17
[2017-05-13] MEDS: PANTOPRAZOLE 20 MG TABLET (PROTONIX) PO SCH (06:14)
[2017-05-13 06:33] VITALS: BP 140/73
[2017-05-13] MEDS: RT-FLUTICASONE 110 MCG (FLOVENT) PER PUFF INH SCH (07:43)
[2017-05-13] MEDS: lisINopril 10 MG (PRINIVIL) TAB PO SCH (08:25)
[2017-05-13] MEDS: DEXAMETHASONE 4 MG TAB (DECADRON) PO SCH (08:25)
[2017-05-13] MEDS: CLOPIDOGREL 75 MG (PLAVIX) TABLET PO SCH (08:25)
[2017-05-13] MEDS: POLYETHYLENE GLYCOL 17 GM (MIRALAX) PACK PO SCH (08:25)
[2017-05-13 08:34] VITALS: BP 100/66
--- NOTE | 2017-05-13 10:05 | Physical Therapy Daily Note ---
PT Daily Note-Current Subjective Patient agrees to PT. Pain Numeric Pain Scale: 5-Moderate Pain Location: Upper Location Body Site: Abdomen Pain Description: Sharp Comment: RN notified Mental Status Patient Orientation: Confused Transfers Functional [place] Measure 0=Not Assessed/NA 4=Minimal Assistance 1=Total Assistance 5=Supervision or Setup 2=Maximal Assistance 6=Modified [place] 3=Moderate Assistance 7=Complete IndependenceIRFPAI Quality Coding Scale 6 Independent with activity with or without an assistive device 5 Patient requires set up or clean up by helper. Patient completes activity by themselves 4 Supervision or touching assist (CGA). [place] provide cues , steadying assist 3 The helper provides less than half the effort to complete the activity 2 The helper provides more than half the effort to complete the activity 1 Dependent. The helper does all the effort to complete an activity 7 Patient refused to complete or attempt activity 9 The patient did not perform the activity before the current illness or injury 88 Not attempted due to Medical conditions or safety concerns Transfers (B, C, W/C) (FIM): 5 Scootin Roll Left to Right (QC): 4 Supine to/from Sit: 5 Sit to/from Stand: 5 Sit to Lying (QC): 4 Sit to Stand (QC): 4 Gait Training Does the Patient Walk?: Yes Gait (FIM): 4 Distance (FIM): 3=150 ft Distance: 300' Walk 50 ft with 2 Turns(QC): 3 Walk 150 ft (QC): 3 Gait Level of Assist: 4 Gait Persons Needed: 1 Gait Assistive Device: FWW slightly unsteady; will require FWW upon dismissal Assessment Patient continues to require minimal assist with use of gait belt for safety. Patient will dismiss to home with family/caregivers. PT Fdc Goals Voice Studies Director Goals PT Fdc Goals Time Frame: May 23, 2017 Transfers (B,C,W/C) (FIM): 7 Sit to Lying (QC): 6 Lying-Sitting on Side/Bed(QC): 6 Sit to Stand (QC): 6 Chair/Xrj-dw-Fknkh Xfer(QC): 6 Does the Patient Walk: Yes Gait (FIM): 6 Gait distance (FIM): 3=150 ft Distance: 300 ft Walk 50ft with 2 Turns (QC): 6 Walk 150 ft (QC): 6 Gait Level of Assist: 6 Gait Assistive Device: FWW PT Plan Treatment/Plan Treatment Plan: Discontinue PT (goals not attained) Treatment Plan: Bed Mobility, Education, Functional Activity Rodrigo, Functional Strength, Gait, Safety, Therapeutic Exercise, Transfers Treatment Duration: May 23, 2017 Frequency: 6 times per week Estimated Hrs Per Day: .25 hour per day Patient and/or Family Agrees t: Yes Time/GCodes Time In: 940 Time Out: 955 Total Billed Treatment Time: 15 Total Billed Treatment 1 visit FA 15 min MONICA QUEVEDO PT May 13, 2017 10:05
--- NOTE | 2017-05-13 10:06 | Therapy Team Discharge Summary ---
Therapy Discharge Summary Discharge Recommendations Date of Discharge Therapy D/C Recommendations: Group Home (TCU/NH) (Skilled OT) Physical Therapy Patient to dismiss to home with family/caregivers for continued care. Patient requires minimal assist for safety with use of gait belt. SS notified of patient will require FWW for home use as well. Goals addressed but not attained. PT Assemblies And Installations Inspector Goals Long-Term Goals PT Assemblies And Installations Inspector Goals Time Frame: May 23, 2017 Transfers (B,C,W/C) (FIM): 7 Sit to Lying (QC): 6 Lying-Sitting on Side/Bed(QC): 6 Sit to Stand (QC): 6 Chair/Wsg-lk-Wbtsb Xfer(QC): 6 Does the Patient Walk: Yes Gait (FIM): 6 Gait distance (FIM): 3=150 ft Distance: 300 ft Walk 50ft with 2 Turns (QC): 6 Walk 150 ft (QC): 6 Gait Level of Assist: 6 Gait Assistive Device: FWW OT Long-Term Goals Long-Term Goals Time Frame: May 16, 2017 Eating (FIM): 6 Eating (QC): 6 Groomin Oral Hygiene (QC): 6 Bathing(FIM): 6 Upper Body Dressing(FIM): 6 Lower Body Dressing(FIM): 6 Toileting(FIM): 6 Toileting Hygiene (QC): 6 Toilet/Commode Transfer(FIM): 6 Toilet/Commode Transfer (QC): 6 Shower Transfer(FIM): 6 Additional Goals: 2-Verbalize Understanding, 3-ImproveStrength/Rodrigo 1=Demonstrate adherence to instructed precautions during ADL tasks. 2=Patient will verbalize/demonstrate understanding of assistive devices/ modifications for ADL. 3=Patient will improve strength/tolerance for activity to enable patient to perform ADL's. MONICA QUEVEDO PT May 13, 2017 10:06
--- NOTE | 2017-05-13 11:39 | Therapy Team Discharge Summary ---
Therapy Discharge Summary Discharge Recommendations Date of Discharge 05-13-17 Therapy D/C Recommendations: 24 hr Supervision, Retirement (TCU/NH) ( Skilled OT) Occupational Therapy Pt. has been seen by occupational therapy to increase overall strength and endurance with daily tasks. At discharge, most goals have not been met, as pt. still requires min assist to complete daily tasks. Pt. is discharging to [facility] for continued skilled treatment to work on strength and endurance for functional return home. All needs have been met in the hospital setting. DC PT Long-Term Goals Cq Developer Goals PT Long-Term Goals Time Frame: May 23, 2017 Transfers (B,C,W/C) (FIM): 7 Sit to Lying (QC): 6 Lying-Sitting on Side/Bed(QC): 6 Sit to Stand (QC): 6 Chair/Pym-qu-Jlkzg Xfer(QC): 6 Does the Patient Walk: Yes Gait (FIM): 6 Gait distance (FIM): 3=150 ft Distance: 300 ft Walk 50ft with 2 Turns (QC): 6 Walk 150 ft (QC): 6 Gait Level of Assist: 6 Gait Assistive Device: FWW OT Long-Term Goals Cq Developer Goals Time Frame: May 16, 2017 Eating (FIM): 6 (met) Eating (QC): 6 (met) Groomin (not met) Oral Hygiene (QC): 6 (not met) Bathing(FIM): 6 (not met) Upper Body Dressing(FIM): 6 (not met) Lower Body Dressing(FIM): 6 (not met) Toileting(FIM): 6 (not met) Toileting Hygiene (QC): 6 (not met) Toilet/Commode Transfer(FIM): 6 (not met) Toilet/Commode Transfer (QC): 6 (not met) Shower Transfer(FIM): 6 (not met) Additional Goals: 2-Verbalize Understanding, 3-ImproveStrength/Rodrigo 1=Demonstrate adherence to instructed precautions during ADL tasks. 2=Patient will verbalize/demonstrate understanding of assistive devices/ modifications for ADL. 3=Patient will improve strength/tolerance for activity to enable patient to perform ADL's. CAROL ANN ERIC OT May 13, 2017 11:39
[2017-05-13] MEDS ORDERED: METO-270 PO (14:57)
[2017-05-13] MEDS ORDERED: DEXA4TAB PO (14:57)
[2017-05-13] MEDS ORDERED: CLOP75TA28 PO (14:57)
--- NOTE | 2017-05-13 18:19 | Oncology Discharge Summary ---
Diagnosis/Chief Complaint Date of Admission May 08, 2017 at 13:17 Date of Discharge May 13, 2017 at 15:35 Discharge Date: May 13, 2017 Discharge Diagnosis 1. Altered Mental Status secondary to brain met; improved since Decadron and radiation. 2. Cardiomyopathy with low ejection fraction and mid anteroseptal and mid inferolateral akinetic segments/ wall motion abnormalities. 3. 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 Stage IV poorly differentiated carcinoma of the lung status post chemotherapy and radiation. Cranial radiation completed 05/13/17 6. COPD 7. Hypertension 8. GERD 9. Former heavy cigarette smoker 10. Leukocytosis 2nd to steroid. Reason Hospital Visit Mr. Membreno is a 61 year old white man with NSCLC admitted to [facility] bed on to finish his cranial radiation for brain mets and altered mental status. He was also treated with Decadron. His mental status has improved since the treatment. He completed his radiation today and wants to go home with his friend. He will have follow up appointment with his primary oncologist Dr Post next week. He is on Decadron taper 4mg bid now and will be off over a week. Cardiology Dr Zhu added Plavix and Metoprolol for his cardiomyopathy and chest pain. Discharge condition: Stable and much improved. Discharge Summary Discharge Instructions to patient/family Please see electonic discharge instructions given to patient. Discharge Medications Reviewed and agree with Discharge Medication list on patient's Discharge Instruction sheet Clinical Quality Measures DVT/VTE Risk/Contraindication: Risk Factor Score Per Nursin RFS Level Per Nursing on Admit: 4+=Very High KINJAL HODGE MD May 13, 2017 18:19
== END 2017-05-13 15:35 | disposition home or self-care (01) | DRG 55 ==
LOC: 4TH 13:17
PROVIDERS: ADMIT Internal Medicine Hematology & Oncology; ATTEND Internal Medicine Hematology & Oncology
DX: C79.31 Secondary malignant neoplasm of brain (principal); C34.90 Malignant neoplasm of unspecified part of unspecified bronchus or lung; R53.83 Other fatigue; E22.2 Syndrome of inappropriate secretion of antidiuretic hormone; I42.9 Cardiomyopathy, unspecified; R41.0 Disorientation, unspecified; J44.9 Chronic obstructive pulmonary disease, unspecified; Z66 Do not resuscitate; I10 Essential (primary) hypertension; K21.9 Gastro-esophageal reflux disease without esophagitis; D72.829 Elevated white blood cell count, unspecified; T38.0X5A Adverse effect of glucocorticoids and synthetic analogues, initial encounter; Z79.899 Other long term (current) drug therapy; Z87.891 Personal history of nicotine dependence
CPT/HCPCS: 36415; 77336; 77417; 80048; 84484; 85025; 93005; 93306; 94640; 94760